=== PATIENT | female | born 1995 | race American Indian/Alaskan Native ===

== ENCOUNTER 2017-08-23 09:29 | Outpatient (CLI) | payer OTHER | END 2017-08-23 09:30 | disposition home or self-care (01) | LOC: LAB.N 09:29 | PROVIDERS: ATTEND Nurse Practitioner Obstetrics & Gynecology | DX: Z36.9 Encounter for antenatal screening, unspecified (principal) | CPT/HCPCS: 36415; 82950; 85018; 86850 ==

== ENCOUNTER 2017-08-24 07:46 | Outpatient (CLI) | payer OTHER | END 2017-08-24 07:47 | disposition home or self-care (01) | LOC: LAB 07:46 | PROVIDERS: ATTEND Nurse Practitioner Obstetrics & Gynecology | DX: R73.02 Impaired glucose tolerance (oral) (principal) | CPT/HCPCS: 36415; 82951 ==

== ENCOUNTER 2017-10-18 15:38 | Outpatient (CLI) | payer OTHER | END 2017-10-18 15:39 | disposition home or self-care (01) | LOC: LAB.R 15:38 | PROVIDERS: ATTEND Nurse Practitioner Obstetrics & Gynecology | DX: Z36.85 Encounter for antenatal screening for Streptococcus B (principal) | CPT/HCPCS: 87081 ==

== ENCOUNTER 2017-11-03 08:32 | Outpatient (CLI) | payer OTHER ==
--- NOTE | 2017-11-03 12:40 | Ultrasound Report ---
OB FOLLOW UP: 11/03/2017 CLINICAL INDICATION: Abnormal fasting glucose, check growth. TECHNIQUE: Real-time scanning was performed with sales representative canvas products static images obtained. LAST MENSTRUAL PERIOD: 02/12/2017 worksheet Clinical Age: 37 weeks 5 days US Age: 38 weeks 1 day EFW Hadlock: 3267 grams EFW% Hadlock: 61% Heart Rate: 146 bpm EDC: 11/21/2017 US EDC: 11/16/2017 BPD Hadlock: 38 weeks 2 days; Mean mm 94 HC Hadlock: 38 weeks 2 days; Mean mm 335 AC Hadlock: 37 weeks 3 days; Mean mm 336 FL Hadlock: 37 weeks 3 days; Mean mm 73 Presentation: cephalic Placental Location: posterior/L wrap Cervical Length: -- Amniotic Fluid: YOLANDA 15.3 cm; MVP 4.9 cm FINDINGS: There is a single viable intrauterine gestation, in cephalic presentation. heart rate is 146 BPM. The placenta is posterior, without evidence of previa. Amniotic fluid volume is normal, with an YOLANDA of 15.3. By size, the fetus measures 38 weeks 1 day (37 weeks 5 days by LMP). Estimated weight by Hadlock method is 3267 grams. No free fluid or adnexal lesion is appreciated. IMPRESSION: SINGLE VIABLE INTRAUTERINE GESTATION, WITH EXPECTED GROWTH FROM OUTSIDE ULTRASOUND. NORMAL YOLANDA. TD: 11/03/2017 10:37 MTDD
== END 2017-11-03 08:33 | disposition home or self-care (01) ==
LOC: DI 08:32
PROVIDERS: ATTEND Nurse Practitioner Obstetrics & Gynecology
DX: O99.810 Abnormal glucose complicating pregnancy (principal); R73.01 Impaired fasting glucose; Z3A.38 38 weeks gestation of pregnancy
CPT/HCPCS: 76816

== ENCOUNTER 2017-11-13 19:20 | Outpatient (CLI) | payer OTHER ==
--- NOTE | 2017-11-13 16:00 | HISTORY & PHYSICAL EXAMINATION ---
Admit History - Instructions [place]/Slash: -Left hand click circles element as positive or present. -Right hand click slashes element as negative or not present. - Visit Reason Visit Reason: Other (logistic induction of labor >39 weeks' gestation) - : 1 Parity: 0 Premature: 0 Ectopic: 0 : 0 Care: positive: [facility] (beginning @ 25 weeks' gestation), [facility] ( until 24 weeks' gestation) Risk/History: positive: None Complications This : positive: None, Other (elevated 1-hr gtt , normal 3-hr gtt; checked CBGs 4x/day, no elevations) Smoking Status: Never smoker - Mother's Labs Mother's RH: positive: Positive (reported per [facility] records) GBS: positive: Group B Step Negative Rubella Status: positive: Immune Meds/Allgy - Home Medications Home Medications: Ambulatory Orders Medication Instructions Recorded Confirmed Control Pills 03/09/15 03/09/15 Ibuprofen [Motrin] 800 mg PO Q8H PRN #30 tablet 03/09/15 diazePAM [Valium] 5 mg PO TID PRN #15 tablet 05/10/15 - Allergies Allergies/Adverse Reactions: Allergies Allergy/AdvReac Type Severity Reaction Status Date / Time No Known Drug Allergies Allergy Verified 05/10/15 19:13 Review of Systems - Constitutional Constitutional: reports: Fatigue. denies: Fever - Eyes Eyes: denies: Blurred vision, Spots in vision, Field loss, Vision loss, Dipolpia - Cardiovascular Cariovascular: denies: Irregular heart rate, Palpitations, Chest pain, Edema - Respiratory Respiratory: denies: Cough, Wheezing, SOB at rest - Gastrointestinal Gastrointestinal: denies: Abdominal pain, Constipation, Diarrhea, Change in bowel habits, Nausea, Vomiting - Genitourinary Genitourinary: reports: Frequency, Urgency. denies: Dysuria - Musculoskeletal Musculoskeletal: denies: Muscle pain, Back pain, Muscle aches - Integumentary Integumentary: denies: Rash, Pruritis, Lesions - Neurological Neurological: denies: General weakness, Focal weakness, Headache, Dizziness, Numbness - Psychiatric Psychiatric: denies: Depression, Anxiety - All Other Systems All Other Systems: reports: Reviewed and negative, Other (+FM, occasional uterine contractions, none painful, no LOF/VB) Physical - Abdominal Exam Contraction Frequency (min/apart): rare
[2017-11-13] MEDS ORDERED: ONDANSETRON 4 MG/2 ML VIAL IVP PRN (19:30)
[2017-11-13] MEDS ORDERED: fentaNYL 100 MCG/2 ML VIAL IVP PRN (19:30)
[2017-11-13] MEDS ORDERED: ACETAMINOPHEN 325 MG TABLET PO PRN (19:30)
[2017-11-13] MEDS ORDERED: SODIUM CHLORIDE FLUSH 0.9% 10 ML SYRINGE IVP SCH (19:30)
[2017-11-13] MEDS ORDERED: SODIUM CHLORIDE FLUSH 0.9% 10 ML SYRINGE IVP PRN (19:30)
[2017-11-13] MEDS ORDERED: DINOPROSTONE 10 MG SUPP VG ONE (19:30)
[2017-11-13] MEDS ORDERED: LACTATED RINGERS 1,000 ML IV SCH (19:30)
[2017-11-13 20:24] VITALS: BP 132/83
== END 2017-11-13 20:35 | disposition home or self-care (01) ==
LOC: WFO 19:20 → FBP 19:25 → UNDOADMOB 19:25 → FBP 20:10 → WFO 20:35
PROVIDERS: ATTEND Nurse Practitioner Obstetrics & Gynecology
DX: Z34.03 Encounter for supervision of normal first pregnancy, third trimester (principal)
CPT/HCPCS: 85025; 99212

== ENCOUNTER 2017-11-14 08:30 | Inpatient (IN) | payer OTHER ==
[2017-11-14] MEDS: SODIUM CHLORIDE FLUSH 0.9% 10 ML SYRINGE IVP SCH (09:04)
[2017-11-14] MEDS: miSOPROStol 100 MCG TABLET BC SCH ×4 (09:04→21:06)
[2017-11-14 09:05] LABS: BASOPHILS # (AUTO) 0.1 10^3/uL (0.0-0.1); BASOPHILS % (AUTO) 0.7 %; EOSINOPHILS # (AUTO) 0.2 10^3/uL (0.0-0.7); EOSINOPHILS % (AUTO) 1.8 %; HGB - HEMOGLOBIN 12.7 g/dL (12.0-16.0); LYMPHOCYTES # (AUTO) 2.5 10^3/uL (1.5-3.5); LYMPHOCYTES % (AUTO) 27.3 %; MEAN CORPUSCULAR HEMOGLOBIN 31.2 pg (27.0-31.0); MEAN CORPUSCULAR HGB CONC 34.6 g/dL (32.0-36.0); MEAN CORPUSCULAR VOLUME 90.1 fL (81.0-99.0); MONOCYTES # (AUTO) 0.6 10^3/uL (0.0-1.0); NEUTROPHILS # (AUTO) 5.7 10^3/uL (1.5-6.6); NEUTROPHILS % (AUTO) 63.2 %; PLT - PLATELET COUNT 252 10^3/uL (130-450); RED BLOOD COUNT 4.06 10^6/uL (4.20-5.40); RED CELL DISTRIBUTION WIDTH 13.8 % (12.0-15.0); WHITE BLOOD COUNT 9.1 x10^3/uL (4.8-10.8)
[2017-11-14] MEDS: LACTATED RINGERS 1,000 ML IV SCH (12:27)
--- NOTE | 2017-11-14 18:08 | PROVIDER PROGRESS NOTE ---
Subjective - Subjective Subjective: S: Spring is laying comfortably in bed. Feeling some menstrual-like cramping but overall comfortable. and mother supportive at bedside. O: FHR baseline 140s, moderate variability, + accels, no decels. Contractions palpate mild every 4-5 minutes A: 22yo @ 39.0wks gestation Logistic induction of labor P: Continue active management with cervical ripening in anticipation for pitocin with favorable cervix. Anticipate admission in less than 48 hours. Anticipate spontaneous vaginal delivery. Repeat SVE 11/15/2017 at 0800 or sooner PRN. Pt verbalized understanding and agrees to above plan. She and her deny further questions or concerns. Objective - Lab Results Fish Bones: 11/14/17 08:54 Other Labs: Lab Results x24hrs 11/14/17 11/14/17 11/14/17 Range/Units 08:54 08:54 08:46 WBC 9.1 (4.8-10.8) x10^3/uL RBC 4.06 L (4.20-5.40) 10^6/uL Hgb 12.7 (12.0-16.0) g/dL Hct 36.6 L (37.0-47.0) % MCV 90.1 (81.0-99.0) fL MCH 31.2 H (27.0-31.0) pg MCHC 34.6 (32.0-36.0) g/dL RDW 13.8 (12.0-15.0) % Plt Count 252 (130-450) 10^3/uL MPV 8.0 (7.9-10.8) fL Neut # 5.7 (1.5-6.6) 10^3/uL Lymph # 2.5 (1.5-3.5) 10^3/uL Gulf # 0.6 (0.0-1.0) 10^3/uL Eos # 0.2 (0.0-0.7) 10^3/uL Baso # 0.1 (0.0-0.1) 10^3/uL Absolute Nucleated RBC 0.01 x10^3/uL Nucleated RBC % 0.1 /100WBC Blood Type O POSITIVE Blood Type Recheck O POSITIVE Antibody Screen NEGATIVE
[2017-11-14] MEDS ORDERED: ZOLPIDEM 5 MG TABLET PO ONE (21:30)
[2017-11-15] MEDS: miSOPROStol 100 MCG TABLET BC SCH ×6 (01:02→20:00)
[2017-11-15] MEDS: SODIUM CHLORIDE FLUSH 0.9% 10 ML SYRINGE IVP SCH ×4 (05:03→18:51)
[2017-11-15] MEDS: LACTATED RINGERS 1,000 ML IV SCH ×2 (08:13→17:46)
[2017-11-15] MEDS ORDERED: DINOPROSTONE 10 MG SUPP VG ONE (08:59)
--- NOTE | 2017-11-15 19:53 | PROVIDER PROGRESS NOTE ---
Subjective - Subjective Subjective: S: Pt feeling discouraged and anxious to meet her baby. Feeling vaginal irritation but declines to have normal saline and lidocaine used to flush out vagina. Feeling some contractions in her back. +FM. O: FHR baseline 130, moderate variability, + accels, no decels. SVE deferred. Contractions irregular/inconsistent. Cervadil easily removed and was at the vaginal introitus. A: 22yo @ 39.2 weeks gestation Treated as A1GDM secondary to impaired 1 hour GTT and borderline 3 hour GTT Non-medical/logistic cervical ripening induction of labor P: 25mcg misoprostol x1 now, followed by 50mcg misoprostol q 4 hours. Reviewed with patient and who are in agreement with the this plan. They verbalized understanding and deny further questions or concerns. Reevaluate in 12 hours or sooner PRN. Objective - Lab Results Benedicto Bones: 11/14/17 08:54
[2017-11-15] MEDS: ZOLPIDEM 5 MG TABLET PO PRN (21:04)
[2017-11-16] MEDS: miSOPROStol 100 MCG TABLET BC SCH ×6 (03:59→20:47)
[2017-11-16] MEDS: SODIUM CHLORIDE FLUSH 0.9% 10 ML SYRINGE IVP SCH ×2 (09:06→16:03)
[2017-11-16] MEDS: LACTATED RINGERS 1,000 ML IV SCH ×2 (09:13→13:21)
--- NOTE | 2017-11-16 11:27 | PROVIDER PROGRESS NOTE ---
Subjective - Subjective Subjective: S: Patient standing at the bedside and swaying. She is feeling some cramping with contractions but coping easily. +FM. Slept well throughout the night as did her . a mother supportive at the bedside. O: FHR baseline 150s, moderate variability, + accels, no decels. Contractions irregular/inconsistent. SVE deferred A: 22yo @ 39.3 wks gestation Impaired 1 hour GTT and borderline 3 hour GTT Treated as A1GDM with stable blood glucose readings throughout Non-medication/logistic induction of labor with cervical ripening P: Continue 50mcg misoprostol q 4 hours Patient up to shower before next dose of misoprostol due Pt verbalized understanding and agrees to above plan. Denies further questions or concerns today. Objective - Lab Results Fish Bones: 11/14/17 08:54
--- NOTE | 2017-11-16 15:05 | PROVIDER PROGRESS NOTE ---
Subjective - Subjective Subjective: S: Spring is feeling some mild menstrual-like cramping with contractions. Coping well and moral is good. Anxious to meet her baby. supportive at bedside. O: FHR baseline 140, + accels, no decels, moderate variability. Contractions palpate mild every 6-10 minutes. SVE 2/50/-3, posterior, soft, vertex, BOW intact A: 22yo @ 39.3wks gestation Impaired 1 hour GTT, 3 hour GTT borderline; treated as A1GDM with well controlled blood glucose GBS negative Non-medical/logistic induction of labor Cytotec 50mcg BC q 4 hours for cervical ripening Category I heart rate tracing P: Continue active management. Continuous monitoring. Anticipate admission to labor and delivery in less than 48 hours. Anticipate spontaneous vaginal delivery. Dr. Crain updated on patient's status and agrees to continued plan of care. Objective - Lab Results Fish Bones: 11/14/17 08:54
[2017-11-16] MEDS: ZOLPIDEM 5 MG TABLET PO PRN (20:54)
[2017-11-17] MEDS: miSOPROStol 100 MCG TABLET BC SCH ×2 (00:55→05:03)
[2017-11-17] MEDS: SODIUM CHLORIDE FLUSH 0.9% 10 ML SYRINGE IVP SCH ×2 (06:19→10:48)
--- NOTE | 2017-11-17 09:58 | PROVIDER PROGRESS NOTE ---
Labor Progress Note - Uterine Monitoring Uterine Monitoring Mode: positive: External toco Contraction Frequency (min/apart): 4-5 Contraction Intensity: positive: Mild to moderate Uterine Resting Tone: positive: Soft - Monitoring Monitor Mode: positive: External ultrasound Heart Rate Baseline: 140 Heart Rate Variability: positive: Moderate (6-25 bmp) Accelerations: positive: Present, 15x15 Decelerations: positive: None Strip Review: positive: Category I - Vaginal Exam Dilation (in cm): 4 Effacement (%): 75 Station: -2 Cervical Position: Midposition (BBOW, AROM for copious CAF) - Labor Progress Note Labor Progress Note/Additional Text: S: Ciara is comfortable but somewhat frustrated by her protracted process of induction. She does not desire analgesia/anesthesia. Her partner & her mother are at the bedside & are supportive. O: AAOx3, NAD WA female VSS EFM: BL 140bpm, +accels, no decels, mod variability TOCO: UCs q 4-5 min x60-80 seconds, palpably moderate SVE: 4/70/-2, BBOW, AROM for copious CAF A: 22 y/o @ 39w5d, logistic IOL s/p effective prostaglandin cervical ripening FHTs cat I Adequate pain control w/o analgesia/anesthesia GBS negative P: 1. Extensive review of all options for management--pt elected AROM w/ Pitocin infusion, reviewed & PARQ held 2. Begin Pitocin @ 2mU/min & titrate per protocol to adequate labor by tocometry 3. Reassess cervical status x4 hours, earlier PRN 4. Reviewed optimal maternal positioning to encourage rotation & descent 5. Reviewed labor physiology, anticipatory guidance 6. Reviewed pain management options 7. Reviewed plan of care w/ pt, partner, pt's mother & RN @ bedside; all in agreement, without concerns. Dr. Crain, DO, updated re: pt clinical status.
[2017-11-17] MEDS ORDERED: fentaNYL 100 MCG/2 ML VIAL IVP PRN (10:34)
--- NOTE | 2017-11-17 10:43 | HISTORY & PHYSICAL EXAMINATION ---
Admit History - Instructions [place]/Slash: -Left hand click circles element as positive or present. -Right hand click slashes element as negative or not present. - Visit Reason Visit Reason: Other (induction of labor, logistic; s/p preinduction cervical ripening w/ buccal prostaglandin) - : 1 Parity: 0 Premature: 0 Ectopic: 0 : 0 Care: positive: [facility], [facility] Complications This : positive: None Smoking Status: Never smoker - Mother's Labs Mother's RH: positive: Positive GBS: positive: Group B Step Negative Rubella Status: positive: Immune Meds/Allgy - Home Medications Home Medications: Ambulatory Orders Medication Instructions Recorded Confirmed Pnv95/Ferrous Fumarate/FA 1 tab PO DAILY 11/16/17 11/16/17 [ Tablet] - Allergies Allergies/Adverse Reactions: Allergies Allergy/AdvReac Type Severity Reaction Status Date / Time No Known Drug Allergies Allergy Verified 05/10/15 19:13 Review of Systems - Constitutional Constitutional: denies: Fatigue, Fever - Cardiovascular Cariovascular: reports: Edema (trace b/l pedal). denies: Irregular heart rate, Palpitations, Chest pain - Respiratory Respiratory: denies: Cough, Wheezing, SOB at rest, SOB with exertion - Gastrointestinal Gastrointestinal: denies: Abdominal pain, Constipation, Diarrhea, Nausea, Vomiting - Genitourinary Genitourinary: reports: Frequency. denies: Dysuria, Urgency - Musculoskeletal Musculoskeletal: denies: Muscle pain, Back pain - Integumentary Integumentary: denies: Rash, Pruritis, Lesions - Neurological Neurological: denies: General weakness, Focal weakness, Headache, Dizziness, Numbness - Psychiatric Psychiatric: denies: Depression, Anxiety - All Other Systems All Other Systems: reports: Reviewed and negative Physical - Abdominal Exam Vital Signs: Temp Pulse Resp BP Pulse Ox 36.9 C 88 16 129/80 98 11/14/17 09:00 11/14/17 09:00 11/14/17 09:00 11/14/17 09:00 11/14/17 09:00 Contraction Frequency (min/apart): 4-5 Contraction Intensity: positive: Moderate Uterine Resting Tone: positive: Soft - Monitoring Heart Rate Baseline: 140 Strip Review: positive: Category I - Presentation Presentation: positive: Vertex - Vaginal Exam Membranes: positive: Membranes ruptured Dilation (in cm): 4 Effacement (%): 75 Station: positive: -2 Cervical Position: positive: Midposition - Speculum Exam Speculum Exam Performed: positive: No Findings: positive: Gross leak (AROM for copious CAF) - Other Notes Labor Progress Note/Additional Text: Ciara Duggan is a 22 y/o @ 39w5d by early US dating. She presented for preinduction cervical ripening & received a combination of intravaginal dinoprostone insert followed by buccal misoprostol administration over a period of 3 days, which ultimately resulted in favorable cervical status. She is GBS negative & elected AROM w/ Pitocin infusion for her IOL. Her care has been complicated only by elevated 1hr gtt & normal 3hr gtt; she assessed CBGs 4x /d w/ all WNL. PMH: unremarkable PSurgH: None OBhx: primiparous GYNhx: no sti, no abnl paps soc hx: no etoh/drugs/tobacco; no dv, partnered; active duty , good social support meds: vitamins allergies: NKDA PE: GEN: AAOx3, NAD WA gravid female HEENT: grossly normocephalic, atraumatic CARDIAC: rrr nl s1s2, no murmur RESP: lungs b/l cta t/o GI: gravid abd, NT, ND, palpable movement, fetus longitudinal, presentation cephalic, EFW 8.5-9# : No lesions, CAF leaking OB: SVE: 4/70/-1, soft midposition EFM: BL 140bpm, +accels, no decels, mod samantha TOCO: UCs q4-5min x60-80 sec MS: FROM, no deformity, minimal pedal edema NEURO: no focal deficit SKIN: CDI, warm, well-perfused, no lesion PSYCH: Normal mood & affect Plan for Labor - Plan For Labor I expect patient to be DC'd or transferred within 96 hours.: Yes Plan for Labor: 1. Begin Pitocin infusion & titrate per protocol to adequate contraction pattern by tocometry 2. Reassess cervical status x4 hours, earlier PRN 3. Analgesia/anesthesia PRN per pt request
[2017-11-17] MEDS: LACTATED RINGERS 1,000 ML IV SCH ×2 (10:48→15:33)
[2017-11-17] MEDS ORDERED: OXYTOCIN/SODIUM CHLORIDE 500 ML IV SCH (11:00)
[2017-11-17] MEDS ORDERED: SODIUM CHLORIDE 0.9% IV SCH (12:00)
[2017-11-17] MEDS ORDERED: OXYTOCIN IV SCH (12:00)
--- NOTE | 2017-11-17 13:35 | PROVIDER PROGRESS NOTE ---
Labor Progress Note - Uterine Monitoring Uterine Monitoring Mode: positive: External toco Contraction Frequency (min/apart): 5 Contraction Intensity: positive: Mild to moderate Uterine Resting Tone: positive: Soft - Monitoring Monitor Mode: positive: External ultrasound Heart Rate Baseline: 145 Heart Rate Variability: positive: Moderate (6-25 bmp) Accelerations: positive: Present, 15x15 Decelerations: positive: None Strip Review: positive: Category I - Vaginal Exam Dilation (in cm): deferred - Labor Progress Note Labor Progress Note/Additional Text: S: Ciara is ambulating in the hallways with Aaron. She reports that her contractions have become more uncomfortable & that she is having trouble sitting still from the discomfort. She is undecided re: ultimate desires for analgesia/anesthesia, but she declines both @ this time. O: AAOx3, NAD WA female VSS EFM BL 145bpm, +accels, no decels, mod samantha TOCO: uterine contractions q5 min on 3mU/min Pitocin, titrated over a period of 1.25 hours SVE deferred secondary to no indication A: 22 y/o @ 39w5d, logistic induction of labor s/p effective prostaglandin cervical ripening s/p AROM for copious CAF @ 0900, for a total ruptured duration of 4.5 hours, afebrile GBS negative Some contraction activity w/ Pitocin infusion x1.25 hours FHTs cat I Adequate pain control w/o analgesia/anesthesia P: 1. Continue to titrate Pitocin infusion per protocol to achieve adequate contraction pattern per tocometry 2. Reassess cervical status x2 hours s/p establishment of adequate contraction pattern--if unable to assess utilizing tocometry, will insert IUPC & titrate accordingly, reviewed titration & tocometry w/ RN 3. Reviewed physiology of labor & optimal maternal positioning to facilitate descent 4. Analgesia/anesthesia PRN per pt request 5. Reviewed plan of care w/ pt, partner & RN; all in agreement, without concerns.
[2017-11-17] MEDS ORDERED: fent/BUPIV 2 MCG/0.125% 250 ML EP ONE (16:04)
[2017-11-17] MEDS ORDERED: BUPIVACAINE 0.25% PF 30 ML VIAL SUBQ ONE (16:23)
[2017-11-17] MEDS ORDERED: ePHEDrine 50 MG/ML VIAL IVP PRN (16:29)
[2017-11-17] MEDS ORDERED: ONDANSETRON 4 MG/2 ML VIAL IVP PRN (16:29)
[2017-11-17] MEDS ORDERED: NALBUPHINE 20 MG/ML AMP IVP PRN (16:29)
[2017-11-17] MEDS ORDERED: LACTATED RINGERS 500 ML IV ONE ×2 (16:29→16:31)
[2017-11-17] MEDS ORDERED: NALOXONE 0.4 MG/ML VIAL IVP PRN (16:29)
[2017-11-17] MEDS ORDERED: fent/BUPIV 2 MCG/0.125% 250 ML EP PRN (16:31)
--- NOTE | 2017-11-17 18:04 | PROVIDER PROGRESS NOTE ---
Labor Progress Note - Uterine Monitoring Uterine Monitoring Mode: positive: External toco, IUPC (placed w/o incident to better assess contraction activity) Contraction Frequency (min/apart): 4-5 Contraction Intensity: positive: Moderate Uterine Resting Tone: positive: Soft - Monitoring Monitor Mode: positive: External ultrasound Heart Rate Baseline: 145 Heart Rate Variability: positive: Moderate (6-25 bmp) Accelerations: positive: Present, 15x15 Decelerations: positive: None Strip Review: positive: Category I - Vaginal Exam Dilation (in cm): 5-6 Effacement (%): 100 Station: -1 Cervical Position: Midposition - Labor Progress Note Labor Progress Note/Additional Text: S: Ciara is comfortable w/ her epidural in place. Aaron & her mother are present @ the bedside & are involved & supportive. She feels occasional pressure but no discomfort O: AAOx3, NAD WA female VSS, afebrile EFM: BL 145bpm, +accels, no decels, mod samantha TOCO: UCs q4-5 min x60-80 sec, palp mod SVE: 5-6/100/-1, ongoing leakage of CAF A: 22 y/o @ 39w5d, logistic IOL s/p effective prostaglandin cervical ripening AROM for CAF @ 0900, for a total ruptured duration of 9 hours, afebrile Slow cervical change w/ Pitocin infusion titrated very slowly over a period of 5.75 hours to a maximum infusion rate of 4mU/min FHTs cat I GBS negative Adequate pain control w/ epidural anesthesia P: 1. IUPC placed to accurately assess uterine activity & adequacy of labor & allow for appropriate titration of Pitocin infusion to achieve MVU of 200 2. Titrate Pitocin infusion by IUPC to adequate labor pattern per MVU 3. Place wang catheter to ensure empty bladder until active pushing in 2nd stage in order to facilitate descent 4. Reviewed optimal maternal positioning to facilitate descent 5. Reassess cervical status x4 hours unless adequate labor not achieved, then x2 hours s/p establishment of adequate labor by MVU, earlier PRN--limit SVE to those clinically indicated to direct plan of care 6. Anticipate initial passive descent in 2nd stage labor 7. Reviewed plan of care w/ pt, partner, pt's mother, RN @ bedside; all in agreement, without concerns; Dr. Paras DO, updated as to pt clinical status
[2017-11-17] MEDS: ACETAMINOPHEN 500 MG TABLET PO PRN (21:13)
--- NOTE | 2017-11-17 22:48 | PROVIDER PROGRESS NOTE ---
Labor Progress Note - Uterine Monitoring Uterine Monitoring Mode: positive: IUPC Contraction Frequency (min/apart): 2-4 Contraction Intensity: positive: Strong (MVU >180) Uterine Resting Tone: positive: Soft - Monitoring Monitor Mode: positive: External ultrasound Heart Rate Baseline: 165 Heart Rate Variability: positive: Moderate (6-25 bmp) Accelerations: positive: Present, 15x15 Decelerations: positive: None Strip Review: positive: Category II - Vaginal Exam Dilation (in cm): 10 Effacement (%): 100 Station: 2 Cervical Position: Anterior - Labor Progress Note Labor Progress Note/Additional Text: S: Spring is uncomfortable & has not been able to get comfortable w/ use of epidural boluses, reports constant vaginal discomfort O: AAOx3, uncomfortable female VS: T 38.0, HR 130, BP 138/85, RR 22 EFM: BL 165bpm, + accels, no decels, mod samantha IUPC: BL 25mmHg, peak 70mmHg, uterine contractions occuring q 2-3 minutes, MVU 160-180 SVE: 10/100/+2 A: 22 y/o @ 39w5d, logistic IOL s/p effective prostaglandin cervical ripening febrile w/ maternal & tachycardia despite antipyretic & fluid boluses, consistent w/ Triple I GBS negative AROM for CAF @ 0900, for a total ruptured duration of 13.75 hours FHTs cat II Inadequate pain control secondary to low station P: 1. Remove wang catheter 2. Begin pushing 3. Presumptive tx of triple I w/ ampicillin 2g IVPB q 6 hrs x24 hours, gentamicin 5mg/kg IVPB once 4. Plan placental disposition to pathology 5. Plan umbilical cord gases & RT present @ delivery 6. Anticipate
[2017-11-17] MEDS: AMPICILLIN 2 GM in SODIUM CHLORIDE 0.9% MINIBAG 100 ML IV SCH (22:56)
[2017-11-17] MEDS ORDERED: GENTAMICIN 120 MG in SODIUM CHLORIDE 0.9% 100ML 100 ML IV SCH (23:00)
[2017-11-17] MEDS ORDERED: GENTAMICIN PER PHARMACY IV PRN (23:00)
[2017-11-17] MEDS ORDERED: SODIUM CHLORIDE 0.9% IV PRN (23:00)
[2017-11-17] MEDS ORDERED: LIDOCAINE 1% 50 ML MDV ONE (23:47)
[2017-11-17] MEDS ORDERED: MAGNESIUM HYDROXIDE 2,400 MG/30 ML UDC PO PRN (23:57)
[2017-11-17] MEDS ORDERED: OXYTOCIN/SODIUM CHLORIDE 250 ML IV ONE (23:57)
[2017-11-17] MEDS ORDERED: METHYLERGONOVINE 0.2 MG/ML AMP ONE (23:57)
[2017-11-17] MEDS ORDERED: HYDROCORTISONE/PRAMOXINE 10 GM PR PRN (23:57)
[2017-11-17] MEDS ORDERED: HYDROCORTISONE 1% CREAM 28 GM TUBE PR PRN (23:57)
[2017-11-17] MEDS ORDERED: WITCH HAZEL/GLYCERIN 1 EACH MED..PAD TOP PRN (23:57)
[2017-11-17] MEDS ORDERED: miSOPROStol 200 MCG TABLET SL SCH (23:58)
--- NOTE | 2017-11-18 00:13 | DELIVERY NOTE ---
Delivery Note - Labor Labor: positive: Induced by oxytocin (s/p prostaglandin preinduction cervical ripening) - Delivery Method Delivery Method: positive: Spontaneous vaginal delivery - Presentation Presentation: positive: Vertex, JOHN - right occiput anterior - Nuchal Cord Nuchal Cord: positive: None - Episiotomy Type Episiotomy Type: positive: None - Laceration Laceration: positive: 1st degree (repaired under local anesthesia w/ 2-0 vicryl , hemostatic.) - Suture Suture Type: positive: Vicryl Suture Size: positive: 2-0 - Delivery Outcome Delivery Outcome: positive: Livebirth - [place] : positive: Placed in direct skin contact with mother, Stimulated, [place] used Dodson sex: positive: Female - Cord Cord: positive: 3 vessels - Placenta Placenta: positive: Intact, Spontaneous - Estimated Blood Loss Estimated Blood Loss (in cc): 850 - Delivery Comments (Free Text/Narrative) Delivery Comments (Free Text/Narrative): Ciara Duggan is a 22 y/o [id number] who presented w/ unfavorable cervical status for logistic induction of labor secondary to partner's impending deployment. She received 1 insert of vaginal dinoprostone & misoprostol buccally over the course of 48 hours. She achieved favorable cervical status the morning of 11/17/2017 & thereafter underwent AROM for CAF & received Pitocin infusion to a maximum infusion rate of 8mU/min, titrated over a period of 11 hours. She received epidural anesthesia per her request @ 5-6cm dilatation & underwent IUPC placement to appropriately direct titration of Pitocin to achieve & maintain an adequate labor pattern. FHTs were monitored electronically t/o the first stage of labor & were cat I until 22:00, at which time Ciara developed a fever & her fetus became persistently tachycardic w/ baseline FHTs 165bpm. She received antipyretic therapy w/o response & was herself tachycardic & persistently febrile. Presumed Triple I was diagnosed & ampicillin/gentamicin infusions initiated accordingly. She was found to be complete @ 2236, for a total first stage duration of 5hrs, 36 minutes. Her expulsive efforts were poor & her ability to coordinate her efforts was also decidedly poor; therefore, epidural infusion was discontinued & expulsive efforts improved over time. Ciara pushed w/ direction to viable female in JOHN position over a 1st degree perineal laceration @ 2335, for a total 2nd stage duration of 59 minutes. Total ruptured duration 14hrs, 35 minutes. vigorous w/ spontaneous, lusty cry. Placed to maternal abd for drying/ stim. Apgars 7/9. Delayed cord clamping until cessation of pulsation, then cord clamped x2 by CNM, cut by FOB. 3VC noted, cord blood obtained; cord segment obtained for gases secondary to persistent tachycardia t/o the 2nd stage; results pending. Active management of the third stage of labor w/ Pitocin in IV fluids; placenta delivered spontaneously, Fabián, @ 2339, for a total 3rd stage duration of 4 minutes. Fundus firm, but lower uterine segment w / significant atony, filling rapidly w/ clot; brisk vaginal bleeding. Bimanual compression performed & MEÑO evacuated x2 for large amount of clot. Methergine 0.2mg IM x1 administered & misoprostol 800mcg bc administered while continuing bimanual compression. MEÑO firmed, FF U-1, bleeding controlled by 2353. Vagina & perineum inspected & 1st degree perineal laceration noted; repaired s/p infiltration w/ 10mL 1% lidocaine, using 2-0 vicryl x2 stitches. Hemostatic & well-approximated. Total EBL 850mL. Maternal VSS. Mother & stable. Weight pending. Will continue abx therapy x24 hours & administer po methergine series 0.2mg TID x3d, will obtain CBC in am. Peds aware of maternal fever/ tachycardia prior to delivery. Anticipate pt will require minimum 48- hour hospital stay.
[2017-11-18] MEDS ORDERED: SODIUM CHLORIDE 0.9% MINIBAG 100 ML IV ONE (00:30)
[2017-11-18] MEDS ORDERED: OXYTOCIN 10 UNIT/ML VIAL ONE (00:32)
[2017-11-18] MEDS: ACETAMINOPHEN 500 MG TABLET PO PRN ×3 (02:59→16:19)
[2017-11-18 05:55] LABS: BASOPHILS # (AUTO) 0.1 10^3/uL (0.0-0.1); BASOPHILS % (AUTO) 0.5 %; EOSINOPHILS % (AUTO) 0.1 %; HGB - HEMOGLOBIN 12.2 g/dL (12.0-16.0); LYMPHOCYTES % (AUTO) 9.1 %; MEAN CORPUSCULAR VOLUME 90.9 fL (81.0-99.0); MEAN PLATELET VOLUME 8.2 fL (7.9-10.8); MONOCYTES # (AUTO) 1.5 10^3/uL (0.0-1.0); MONOCYTES % (AUTO) 6.7 %; NEUTROPHILS # (AUTO) 18.2 10^3/uL (1.5-6.6); NEUTROPHILS % (AUTO) 83.6 %; PLT - PLATELET COUNT 239 10^3/uL (130-450); RED BLOOD COUNT 4.05 10^6/uL (4.20-5.40); RED CELL DISTRIBUTION WIDTH 13.4 % (12.0-15.0); WHITE BLOOD COUNT 21.7 x10^3/uL (4.8-10.8)
[2017-11-18] MEDS: AMPICILLIN 2 GM in SODIUM CHLORIDE 0.9% MINIBAG 100 ML IV SCH ×4 (06:13→18:28)
[2017-11-18] MEDS: METHYLERGONOVINE 0.2 MG/ML AMP PO SCH ×3 (06:14→21:33)
[2017-11-18 06:43] LABS: PLATELET ESTIMATE, MANUAL NORMAL (130-450,000) (NORMAL); PLATELET MORPHOLOGY NORMAL APPEARANCE (NORMAL); RBC MORPHOLOGY (MULTIPLE) NORMAL APPEARANCE (NORMAL)
[2017-11-18] MEDS ORDERED: GENTAMICIN 340 MG in SODIUM CHLORIDE 0.9% 100ML 100 ML IV SCH (09:00)
[2017-11-18] MEDS: CELECOXIB 100 MG CAPSULE PO SCH ×2 (09:30→21:33)
[2017-11-18] MEDS: DOCUSATE SODIUM 100 MG CAPSULE PO SCH ×2 (09:31→21:33)
[2017-11-18] MEDS: SODIUM CHLORIDE FLUSH 0.9% 10 ML SYRINGE IVP SCH ×2 (10:04→13:49)
[2017-11-18] MEDS: SODIUM CHLORIDE FLUSH 0.9% 10 ML SYRINGE IVP PRN ×4 (10:46→18:58)
[2017-11-18] MEDS: CHERRY SYRUP 10 ML UDC PO SCH ×2 (14:38→21:33)
--- NOTE | 2017-11-18 17:06 | PROVIDER PROGRESS NOTE ---
Subjective - Subjective Subjective: S: Bonding well with baby. with some difficulty and reports baby easily falls asleep at the breast and is difficult to wake. Reports she is sore abdominally in addition to overall body discomfort and particularly in her lower back. Mom and supportive at the bedside. O: Heart RRR w/o M/G/R. Lungs CTAB. Abdomen soft and moderately tender with fundus firm at U. Bilateral LE's 2+ edema from feet to mid-calf. Urinary catheter draining well with light yellow urine. A: 22yo -->P1 s/p TSVD of viable female Chorioamnionitis A1GDM S/p PP hemorrhage 850mL P: Continue treatment of chorioamnionitis and monitor patient for symptoms of infection. Continue to work closely with senior staff accountant on lacatation. Encouraged her to walk around the unit. Catherine catheter removed and patient urinating without difficulty. Continue routine PP care and medications. Objective - Vital Signs/Intake & Output Vital Signs: Vital Signs x48h Temp Pulse Resp BP Pulse Ox 11/18/17 16:00 36.7 C 81 16 126/79 100 11/18/17 13:00 37.0 C 77 16 127/76 99 Intake & Output: Intake & Output 11/15/17 11/16/17 11/17/17 11/18/17 23:59 23:59 23:59 23:59 Intake Total 1575 661.5 Output Total 4590 Balance 1575 -3928.5 - Lab Results Fish Bones: 11/18/17 05:28 Other Labs: Lab Results x24hrs 11/18/17 Range/Units 05:28 WBC 21.7 H (4.8-10.8) x10^3/uL RBC 4.05 L (4.20-5.40) 10^6/uL Hgb 12.2 (12.0-16.0) g/dL Hct 36.8 L (37.0-47.0) % MCV 90.9 (81.0-99.0) fL MCH 30.0 (27.0-31.0) pg MCHC 33.0 (32.0-36.0) g/dL RDW 13.4 (12.0-15.0) % Plt Count 239 (130-450) 10^3/uL MPV 8.2 (7.9-10.8) fL Neut # 18.2 H (1.5-6.6) 10^3/uL Lymph # 2.0 (1.5-3.5) 10^3/uL [place] # 1.5 H (0.0-1.0) 10^3/uL Eos # 0.0 (0.0-0.7) 10^3/uL Baso # 0.1 (0.0-0.1) 10^3/uL Absolute Nucleated RBC 0.01 x10^3/uL Nucleated RBC % 0.0 /100WBC Manual Slide Review Indicated Platelet Estimate NORMAL (130-450,000) (NORMAL) Platelet Morphology NORMAL APPEARANCE (NORMAL) RBC Morph Micro Appear NORMAL APPEARANCE (NORMAL)
[2017-11-18 20:21] LABS: GENTAMICIN,RANDOM 1.2 ug/mL
[2017-11-19] MEDS: METHYLERGONOVINE 0.2 MG/ML AMP PO SCH (05:51)
[2017-11-19] MEDS: CHERRY SYRUP 10 ML UDC PO SCH (06:02)
[2017-11-19 06:35] LABS: BASOPHILS # (AUTO) 0.1 10^3/uL (0.0-0.1); BASOPHILS % (AUTO) 0.5 %; EOSINOPHILS # (AUTO) 0.2 10^3/uL (0.0-0.7); EOSINOPHILS % (AUTO) 1.2 %; HGB - HEMOGLOBIN 12.1 g/dL (12.0-16.0); LYMPHOCYTES # (AUTO) 2.4 10^3/uL (1.5-3.5); LYMPHOCYTES % (AUTO) 14.8 %; MEAN CORPUSCULAR HEMOGLOBIN 30.1 pg (27.0-31.0); MEAN CORPUSCULAR HGB CONC 32.8 g/dL (32.0-36.0); MEAN CORPUSCULAR VOLUME 91.7 fL (81.0-99.0); MEAN PLATELET VOLUME 8.3 fL (7.9-10.8); MONOCYTES # (AUTO) 1.2 10^3/uL (0.0-1.0); MONOCYTES % (AUTO) 7.7 %; NEUTROPHILS # (AUTO) 12.3 10^3/uL (1.5-6.6); NEUTROPHILS % (AUTO) 75.8 %; PLT - PLATELET COUNT 232 10^3/uL (130-450); RED BLOOD COUNT 4.04 10^6/uL (4.20-5.40); RED CELL DISTRIBUTION WIDTH 13.7 % (12.0-15.0); WHITE BLOOD COUNT 16.2 x10^3/uL (4.8-10.8)
[2017-11-19] MEDS: CELECOXIB 100 MG CAPSULE PO SCH ×2 (09:44→21:07)
[2017-11-19] MEDS: DOCUSATE SODIUM 100 MG CAPSULE PO SCH ×2 (09:44→21:07)
--- NOTE | 2017-11-19 10:20 | PROVIDER PROGRESS NOTE ---
Subjective - Subjective Subjective: S: Sitting up on couch and baby in football hold position. Bonding well with baby. significantly improved. Baby cluster fed throughout the night. Reports a sore area that cracked on the underside of her left nipple. Pain well controlled with ibuprofen and tylenol. Bleeding decreased and is light. Feeling some soreness in her lower back at epidural site. Overall feeling well and improved. They are anxious to leave early tomorrow morning. and mom supportive at the bedside. O: Hgb 12.7 -->12.2-->12.1; WBC 91.-->21.7-->16.2; BP 129/86; Afebrile; Heart RRR w/o M/G/R. Lungs CTAB. Abdomen soft and nontender with fundus firm at U-1. Bilateral LE's trace edema. Perineum intact and repair with mild edema. A: 22yo -->P1 PPD#2 s/p TSVD of viable female infant named Lorena. S/p hemorrhage of ~850mL - s/p methergine PO x 24 hours, Hg & Hct stable S/p chorioamnionitis - afebrile, abdominal tenderness improved, s/p ampicillin and gentamycin P: Continue routine pp care and meds. Plan discharge home tomorrow morning. Objective - Vital Signs/Intake & Output Vital Signs: Vital Signs x48h Temp Pulse Resp BP Pulse Ox 11/19/17 03:40 37 C 83 16 129/86 H 100 Intake & Output: Intake & Output 11/16/17 11/17/17 11/18/17 11/19/17 23:59 23:59 23:59 23:59 Intake Total 1575 2194.833 480 Output Total 4790 Balance 1575 -2595.167 480 - Lab Results Fish Bones: 11/19/17 06:14 Other Labs: Lab Results x24hrs 11/19/17 11/18/17 Range/Units 06:14 19:23 WBC 16.2 H (4.8-10.8) x10^3/uL RBC 4.04 L (4.20-5.40) 10^6/uL Hgb 12.1 (12.0-16.0) g/dL Hct 37.0 (37.0-47.0) % MCV 91.7 (81.0-99.0) fL MCH 30.1 (27.0-31.0) pg MCHC 32.8 (32.0-36.0) g/dL RDW 13.7 (12.0-15.0) % Plt Count 232 (130-450) 10^3/uL MPV 8.3 (7.9-10.8) fL Neut # 12.3 H (1.5-6.6) 10^3/uL Lymph # 2.4 (1.5-3.5) 10^3/uL [place] # 1.2 H (0.0-1.0) 10^3/uL Eos # 0.2 (0.0-0.7) 10^3/uL Baso # 0.1 (0.0-0.1) 10^3/uL Absolute Nucleated RBC 0.02 x10^3/uL Nucleated RBC % 0.1 /100WBC Last Dose Date 11/18/17 Last Dose Time 1130 Random Gentamicin 1.2 ug/mL
[2017-11-19] MEDS: ACETAMINOPHEN 500 MG TABLET PO PRN (18:48)
[2017-11-20] MEDS: ACETAMINOPHEN 500 MG TABLET PO PRN (00:28)
--- NOTE | 2017-11-20 07:03 | Discharge Plan ---
Discharge Plan Disposition: 01 Home, Self Care Condition: Good Diet: Regular Activity Restrictions: No Restrictions Shower Restrictions: No Driving Restrictions: No Weight Bearing: Full Weight No Smoking: If you smoke, Please STOP! Call for help.
--- NOTE | 2017-11-20 07:13 | PROVIDER PROGRESS NOTE ---
Subjective - Subjective Subjective: S: Bonding well with baby. without difficulty. Baby cluster fed throughout the night so they are tired but overall feeling well. Nipples comfortable and no cracking noted over left nipple as was her concern yesterday. Pain well controlled with ibuprofen and tylenol. Bleeding decreased and is light. supportive and currently rocking baby at the bedside. O: Normotensive, afebrile. Heart RRR w/o M/G/R, lungs CTAB. Abdomen soft and nontender. Fundus firm at U-2. Light lochia rubra. Bilateral LE's 2+ edema. A: 22yo -->P1 PPD#3 s/p TSVD of viable female infant named Lornea. S/p chorioamnionitis with treatment with ampicillin and gentamycin; Afebrile, WBC decreased S/p hemorrhage with stable Hgb & Hct and no excessive bleeding P: Reviewed self care and warning signs. Extensive review. Rx handwritten and provided to patient for Ibuprofen 600mg PO q 6 hours PRN pain #60 with 1 refill; Fluconazole 200mg PO q day x 14 days #14 with 0 refills; All-purpose nipple ointment 15 gram tube to apply sparingly to affected area PRN. No need to wipe off between feedings, 1 refill. Pt plans to take to [facility] in [place]. They are unsure of their plan for contraception at this time but relatively sure she desires a LARC - considering Mirena IUD. She plans to f/u with myself at [facility] in 1 week for a consultation and then again in 3 weeks for a routine visit. She and her both verbalized understanding and agree to the above plan. They deny further questions or concerns today. Return in 1 week or sooner PRN. Objective - Vital Signs/Intake & Output Vital Signs: Vital Signs x48h Temp Pulse Resp BP Pulse Ox 11/20/17 04:35 36.8 C 79 18 125/87 H 100 Intake & Output: Intake & Output 11/17/17 11/18/17 11/19/17 11/20/17 23:59 23:59 23:59 23:59 Intake Total 1575 2194.833 480 Output Total 4790 Balance 1575 -2595.167 480 - Lab Results Fish Bones: 11/19/17 06:14
[2017-11-20 09:15] VITALS: BP 136/92
--- NOTE | 2017-11-20 09:20 | Labor Flowsheet ---
Labor Flowsheet Datetime Report Generated by CPN: 11/20/2017 09:20 Datetime: 11/20/2017 08:13 VITAL SIGNS NBP Sys/[place]/Mean (mmHg): 128 : 95 : 101 Pulse: 83 LaborFlag: Labor Datetime: 11/18/2017 06:14 SpO2 (%): 97 Datetime: 11/17/2017 23:35 Stage 2 Comments: viable female Datetime: 11/17/2017 23:30 UTERINE ACTIVITY Monitor Mode: External Frequency (min): 1-3 Quality: Strong Duration (sec): 40-60 Pattern: Normal: <= 5 Contractions in 10 Minutes Resting Tone (Palpate): Relaxed Pitocin Checklist: At Least 1 Acceleration of 15 bpm x 15 Seconds in 30 Minutes or Adequate Variabi lity; No More than 5 Uterine Contractions in 10 Minutes for any 20 Minute Interval; Uterus Palpates S oft between Contractions ASSESSMENT A Monitor Mode: External US FHR Baseline Rate : 160 Variability: Moderate 6-25 bpm Accelerations: 15X15 Decelerations: None Category: Category I Oxygen Method: Room Air Datetime: 11/17/2017 23:15 Contraction Comments: Pt pushing Datetime: 11/17/2017 23:02 Monitor Interventions for UA: [place] Adjusted Datetime: 11/17/2017 23:00 Comments: accels up to 180s noted Anesthesia Level Check: T9 TEACHING Instructional Method: Verbal Plan of Care: Labor Labor/Induction: Labor Stages; Pushing Methods Pain Management: Epidural; Pain Scale/Goals Medications: Antibiotics; Pitocin PTL/PROM: Signs/Symptoms of Infection Datetime: 11/17/2017 22:58 Antibiotics: Ampicillin IV 2 Gm Datetime: 11/17/2017 22:50 Resting Tone IUP (mmHg): 30-40 Intensity IUP (mmHg): 45-70 Eola Units (mmHg): 135 STAGE 2 Pushing: Coached on Pushing; Urge to Push Pushing Position: Pushing with Contractions Pushing Progress: Descent with Pushing Datetime: 11/17/2017 22:43 Temperature (C): 37.8 Datetime: 11/17/2017 22:41 I/O Interventions: Catherine Discontinued Patient Care Comments: 275 urine output Datetime: 11/17/2017 22:36 VAGINAL EXAM Dilatation (cm): 10.0 Effacement (%): 100 Station: 1 Exam by: Milagrosa CNM Vaginal Bleeding: Normal Show Cervix, Consistency: Soft Vaginal Exam Comments: "Pt complete" Datetime: 11/17/2017 22:33 Stage of : Labor Provider Reviewed Strip: Yes COMMUNICATION Communication: Provider at Bedside Notification Reason: Status Update; Status; Labor Status; Uterine Activity; Pain Communication Comments: Milagrosa CNM @ BS Datetime: 11/17/2017 22:26 PAIN Pain Scale: 7 Pain Presence: Intermittent Pain Type: Cramping; Pressure Pain Location: Abdomen Pain Coping: Breathing Through Contractions Pain Assessment Comments: Epidural still controlling pain according to pt. Comfort Measures: Breathing/Relaxation Datetime: 11/17/2017 22:20 PATIENT CARE IV/Blood Work: IV Bolus Started Datetime: 11/17/2017 22:18 Vital Sign Comments: Pt dependent on R. arm which has cuff Datetime: 11/17/2017 21:24 Temperature Route: Oral Datetime: 11/17/2017 21:18 Patient Position/Activity: Right Lateral Datetime: 11/17/2017 20:14 MEDICATIONS Pitocin (milliunits): Increased to @ 8 Datetime: 11/17/2017 20:07 MATERNAL ASSESSMENT Level of Consciousness: Fully Conscious Headache: Occipital; Frontal Breath Sounds, Left: Clear and Equal Breath Sounds, Right: Clear and Equal Nausea/Vomiting: Denies RUQ Epigastric Pain: Denies Maternal Comments: mild swelling romulo. feet and LE Datetime: 11/17/2017 20:04 Medication Comments: IVF increased to 150 ml/hr Datetime: 11/17/2017 18:13 Respirations: 18 Datetime: 11/17/2017 16:29 Monitor Interventions for FHR: Ultrasound Adjusted Datetime: 11/17/2017 16:14 Epidural Procedure Other: Pump Started Datetime: 11/17/2017 16:10 Epidural Procedure: Loading Dose Datetime: 11/17/2017 16:04 ANESTHESIA Anesthesia Plans: Local Datetime: 11/17/2017 16:02 Anesthesia Comments: per WIDE LOAD ESCORT Augustine, LR may remain @250cc/hr Datetime: 11/17/2017 16:00 PROCEDURE TIME OUT Procedure Verify: Correct Patient Identity; Correct Side and Site are Marked; Accurate Procedure Co nsent Form; Agreement on Procedure to be Done; Correct Patient Position Epidural Positioning: Sitting Datetime: 11/17/2017 14:57 Strip Reviewed by: CNM Milagrosa Datetime: 11/17/2017 11:29 Membrane Status: Ruptured Datetime: 11/17/2017 09:10 Cervix, Position: Midposition Datetime: 11/17/2017 09:08 Membranes Rupture Method: Artificial Amniotic Fluid Color: Clear Amniotic Fluid Amount: Moderate Amniotic Fluid Odor: Normal Datetime: 11/17/2017 06:27 Unit Routine: Unit Personnel Datetime: 11/17/2017 05:03 Cervical Ripening Agents: Cytotec @ 50 Datetime: 11/16/2017 20:55 Analgesics/Sedatives: Ambien (mg) @ Datetime: 11/15/2017 19:32 Provider Notified (Name): A.Trevon, CNM Datetime: 11/15/2017 19:30 Pain Relief Measures: Comfort Measures Datetime: 11/15/2017 17:40 FHR Baseline Changes: No Baseline Change Datetime: 11/14/2017 09:01 Pain Goal: 5 DTR's/Clonus: DTRs 2+; No Clonus
--- NOTE | 2017-11-23 14:54 | DISCHARGE SUMMARY ---
Physician: HOWARD Sanchez DATE OF ADMISSION: 11/17/2017 DATE OF DISCHARGE: 11/20/2017 DIAGNOSES ON ADMISSION 1. A 22-year-old G1, P0 at 39.0 weeks' gestation. 2. Nonmedical/logistic induction of labor. 3. Treated as 1 GDM gestational diabetes mellitus secondary to impaired 1-hour glucose tolerance test and borderline 3-hour glucose tolerance test. DIAGNOSES ON DISCHARGE 1. A 22-year-old, G1, P1-0-0-1 status post spontaneous vaginal delivery on . 2. Chorioamnionitis status post treatment with ampicillin and gentamicin. 3. Status post hemorrhage with stable hemoglobin and hematocrit, and no excessive bleeding. BRIEF HISTORY: She is a patient at [facility] who presented on 11/14/2017 for elective nonmedical induction of labor with cervical ripening. The patient was noted to be 4, 70, -2 with a bulging bag of water at admission following effective prostaglandin cervical ripening. She was augmented with AROM and Pitocin, and spontaneously delivered a viable female named Lorena on 11/17/2017 at 2325. Apgars were 7 and 9 at one and five minutes respectively. EBL was 850 mL. The patient had a first-degree laceration that was repaired using a 2-0 Vicryl in the usual fashion under sterile conditions. Bimanual compression and lower uterine segment evacuation x2 for a large amount of clot. Methergine 0.2 mg IM x1 administered and misoprostol 800 mcg buccally administered while continuing bimanual compression. Following management of bleeding and perineal repair, bleeding stabilized and laceration hemostatic and well approximated. She has been doing well in her course. She is ambulating and tolerating a regular diet. She is urinating without difficulty and her lochia is normal. Her pain is well controlled with oral medications. She will be discharged home today on day #3 with prescriptions for ibuprofen, fluconazole, and all-purpose nipple ointment. She intends to follow up with myself at [facility] in 1 week for a visit, and 3 weeks for routine visit. She has been given precautions to call if she has any worsening fevers, chills, abdominal pain, increased bleeding or foul smelling vaginal lochia. TD: 11/22/2017 16:19 correction to 11/17, isaurol11/29/17 CANDI
== END 2017-11-20 08:25 | disposition home or self-care (01) | DRG 768 ==
LOC: WFO 08:30 → FBP 08:32 → OBSVTOIN 11-17 10:33
PROVIDERS: ADMIT Nurse Practitioner Obstetrics & Gynecology; ATTEND Nurse Practitioner Obstetrics & Gynecology
PROC: 3E0P7VZ Introduction of Hormone into Female Reproductive, Via Natural or Artificial Opening (ICD-10-PCS; 2017-11-14)
PROC: 10E0XZZ Delivery of Products of Conception, External Approach (ICD-10-PCS; principal; 2017-11-17)
PROC: 0W3R7ZZ Control Bleeding in Genitourinary Tract, Via Natural or Artificial Opening (ICD-10-PCS; 2017-11-17)
PROC: 3E033VJ Introduction of Other Hormone into Peripheral Vein, Percutaneous Approach (ICD-10-PCS; 2017-11-17)
PROC: 10907ZC Drainage of Amniotic Fluid, Therapeutic from Products of Conception, Via Natural or Artificial Opening (ICD-10-PCS; 2017-11-17)
PROC: 0HQ9XZZ Repair Perineum Skin, External Approach (ICD-10-PCS; 2017-11-17)
PROC: 10H07YZ Insertion of Other Device into Products of Conception, Via Natural or Artificial Opening (ICD-10-PCS; 2017-11-17)
DX: O24.420 Gestational diabetes mellitus in childbirth, diet controlled (principal); O41.1230 Chorioamnionitis, third trimester, not applicable or unspecified; O72.1 Other immediate postpartum hemorrhage; Z37.0 Single live birth; O76 Abnormality in fetal heart rate and rhythm complicating labor and delivery; O70.0 First degree perineal laceration during delivery; O92.12 Cracked nipple associated with the puerperium; Z3A.39 39 weeks gestation of pregnancy; Z60.8 Other problems related to social environment
CPT/HCPCS: 36415; 59200; 80170; 85025; 86850; 86900; 86901

== ENCOUNTER 2018-09-29 20:48 | Emergency (ER) | payer OTHER ==
[2018-09-29] MEDS ORDERED: SODIUM CHLORIDE 0.9% 1,000 ML IV ONE (21:18)
[2018-09-29] MEDS ORDERED: METOCLOPRAMIDE 10 MG/2 ML VIAL IVP STA (21:18)
[2018-09-29 21:45] LABS: BASOPHILS % (AUTO) 0.5 %; EOSINOPHILS # (AUTO) 0.1 10^3/uL (0.0-0.7); EOSINOPHILS % (AUTO) 1.7 %; HGB - HEMOGLOBIN 13.1 g/dL (12.0-16.0); LYMPHOCYTES # (AUTO) 2.9 10^3/uL (1.5-3.5); LYMPHOCYTES % (AUTO) 34.2 %; MEAN CORPUSCULAR HEMOGLOBIN 31.7 pg (27.0-31.0); MEAN CORPUSCULAR HGB CONC 35.6 g/dL (32.0-36.0); MEAN CORPUSCULAR VOLUME 89.3 fL (81.0-99.0); MEAN PLATELET VOLUME 6.8 fL (7.9-10.8); MONOCYTES # (AUTO) 0.8 10^3/uL (0.0-1.0); MONOCYTES % (AUTO) 9.4 %; NEUTROPHILS # (AUTO) 4.6 10^3/uL (1.5-6.6); NEUTROPHILS % (AUTO) 54.2 %; PLT - PLATELET COUNT 329 10^3/uL (130-450); RED BLOOD COUNT 4.12 10^6/uL (4.20-5.40); RED CELL DISTRIBUTION WIDTH 12.8 % (12.0-15.0); WHITE BLOOD COUNT 8.5 x10^3/uL (4.8-10.8)
[2018-09-29 22:07] LABS: ALBUMIN 3.8 g/dL (3.2-5.5); ALKALINE PHOSPHATASE 86 IU/L (42-121); ALT ALANINE AMINOTRANSFERASE 23 IU/L (10-60); AST ASPARTATE AMINOTRANSFERASE 22 IU/L (10-42); BILIRUBIN,TOTAL 0.4 mg/dL (0.2-1.0); BUN - BLOOD UREA NITROGEN 6 mg/dL (6-20); CALCIUM 8.5 mg/dL (8.5-10.3); CARBON DIOXIDE - CO2 24 mmol/L (21-32); CHLORIDE 102 mmol/L (101-111); CREATININE 0.3 mg/dL (0.4-1.0); GFR - MDRD 276 (>89); GLUCOSE 95 mg/dL (70-100); LIPASE 34 U/L (22-51); SODIUM 135 mmol/L (135-145); TOTAL PROTEIN 7.5 g/dL (6.7-8.2)
[2018-09-29 22:12] LABS: HCG,QUALITATIVE BLOOD NEGATIVE
[2018-09-29 22:58] LABS: BILIRUBIN,URINE NEGATIVE (NEGATIVE); GLUCOSE, URINE (UA) NEGATIVE (NEGATIVE); KETONES,URINE (UA) NEGATIVE (NEGATIVE); LEUKOCYTE ESTERASE, URINE TRACE (NEGATIVE); NITRITE,URINE NEGATIVE (NEGATIVE); OCCULT BLOOD,URINE LARGE (NEGATIVE); PROTEIN,URINE NEGATIVE (NEGATIVE); UROBILINOGEN,URINE 0.2 (NORMAL) E.U./dL (NORMAL)
[2018-09-29 22:59] LABS: CLARITY,URINE CLEAR (CLEAR)
[2018-09-29 23:08] LABS: BACTERIA,URINE Rare /HPF (None Seen); SQUAMOUS EPITHELIAL CELL,UR MOD Squamous (<= Few)
--- NOTE | 2018-09-29 23:12 | ED Physician Documentation ---
History of Present Illness - Stated complaint Stated Complaint: DIZZINESS/NAUSEA - Chief complaint Chief Complaint: General - Additonal information Additional information: 22-year-old who presents the emergency department with complaints of dizziness and nausea. The patient's symptoms started 3 days ago with fever, chills, body aches and general fatigue. Today the patient reports feeling lightheaded and dizzy with nausea. The patient has been experiencing some diarrhea. The patient denies any focal area of abdominal pain or ongoing abdominal pain. No reports of URI symptoms or shortness of breath. No improvement with over-the-co unter therapy. Symptoms are described as mild. No other associated symptoms Review of Systems Constitutional: reports: Fever, Chills, Myalgias, Fatigue Eyes: denies: Discharge Ears: denies: Ear pain Nose: denies: Congestion Throat: denies: Sore throat Cardiac: denies: Chest pain / pressure Respiratory: denies: Cough GI: reports: Nausea, Vomiting, Diarrhea. denies: Abdominal Pain, Abdominal Swelling : denies: Dysuria Musculoskeletal: denies: Back pain Neurologic: denies: Generalized weakness, Difficulty speaking PD PAST MEDICAL HISTORY - Past Medical History Past Medical History: Yes Cardiovascular: None Respiratory: None Neuro: None Endocrine/Autoimmune: Other GI: None : None HEENT: None Psych: None Musculoskeletal: None Derm: None - Past Surgical History Past Surgical History: No - Present Medications Home Medications: Ambulatory Orders Medication Instructions Recorded Confirmed Ondansetron HCl [Zofran] 4 mg PO Q6HR PRN #30 tablet 09/29/18 - Allergies Allergies/Adverse Reactions: Allergies Allergy/AdvReac Type Severity Reaction Status Date / Time No Known Drug Allergies Allergy Verified 09/29/18 20:55 - Social History Does the pt smoke?: No Smoking Status: Never smoker Does the pt drink ETOH?: No Does the pt have substance abuse?: No - Immunizations Immunizations are current?: Yes - POLST Patient has POLST: No PD ED PE NORMAL - General General: Alert and oriented X 3, No acute distress - HEENT HEENT: Atraumatic, PERRL, EOMI, Ears normal - Cardiac Cardiac: RRR, Strong equal pulses - Respiratory Respiratory: No respiratory distress, Clear bilaterally - Abdomen Abdomen: Soft, Non tender, Non distended - Derm Derm: Normal color - Extremities Extremities: No deformity, No edema - Neuro Neuro: Alert and oriented X 3, Normal speech - Psych Psych: Normal affect Results - Vitals Vitals: Vital Signs - 24 hr 09/29/18 09/29/18 09/29/18 20:51 21:27 21:59 Temperature 36.2 C L Heart Rate 80 87 Respiratory 18 16 16 Rate Blood Pressure 142/94 H 140/89 H O2 Saturation 100 99 09/29/18 09/29/18 09/29/18 22:22 22:47 23:16 Temperature 36.2 C L Heart Rate 70 79 Respiratory 16 17 14 Rate Blood Pressure 133/86 H 121/77 O2 Saturation 98 100 100 09/29/18 23:18 Temperature Heart Rate Respiratory 16 Rate Blood Pressure O2 Saturation Oxygen O2 Source Room air - Labs Labs: Laboratory Tests 09/29/18 09/29/18 09/29/18 21:30 21:30 21:30 WBC 8.5 RBC 4.12 L Hgb 13.1 Hct 36.8 L MCV 89.3 MCH 31.7 H MCHC 35.6 RDW 12.8 Plt Count 329 MPV 6.8 L Neut # (Auto) 4.6 Lymph # (Auto) 2.9 [place] # (Auto) 0.8 Eos # (Auto) 0.1 Baso # (Auto) 0.0 Absolute Nucleated RBC 0.01 Nucleated RBC % 0.1 Sodium 135 Potassium 3.4 L Chloride 102 Carbon Dioxide 24 Anion Gap 9.0 BUN 6 Creatinine 0.3 L Estimated GFR (MDRD) 276 Glucose 95 Calcium 8.5 Total Bilirubin 0.4 AST 22 ALT 23 Alkaline Phosphatase 86 Total Protein 7.5 Albumin 3.8 Globulin 3.7 Albumin/Globulin Ratio 1.0 Lipase 34 Serum HCG, Qual NEGATIVE Urine Color YELLOW Urine Clarity CLEAR Urine pH 6.0 Ur Specific [place] 1.020 Urine Protein NEGATIVE Urine Glucose (UA) NEGATIVE Urine Ketones NEGATIVE Urine Occult Blood LARGE H Urine Nitrite NEGATIVE Urine Bilirubin NEGATIVE Urine Urobilinogen 0.2 (NORMAL) Ur Leukocyte Esterase TRACE H Urine RBC 6-10 H Urine WBC 0-3 Ur Squamous Epith Cells MOD Squamous H Urine Bacteria Rare Ur Microscopic Review INDICATED Urine Culture Comments NOT INDICATED Influenza A (Rapid) Influenza B (Rapid) 09/29/18 21:36 WBC RBC Hgb Hct MCV MCH MCHC RDW Plt Count MPV Neut # (Auto) Lymph # (Auto) [place] # (Auto) Eos # (Auto) Baso # (Auto) Absolute Nucleated RBC Nucleated RBC % Sodium Potassium Chloride Carbon Dioxide Anion Gap BUN Creatinine Estimated GFR (MDRD) Glucose Calcium Total Bilirubin AST ALT Alkaline Phosphatase Total Protein Albumin Globulin Albumin/Globulin Ratio Lipase Serum HCG, Qual Urine Color Urine Clarity Urine pH Ur Specific [place] Urine Protein Urine Glucose (UA) Urine Ketones Urine Occult Blood Urine Nitrite Urine Bilirubin Urine Urobilinogen Ur Leukocyte Esterase Urine RBC Urine WBC Ur Squamous Epith Cells Urine Bacteria Ur Microscopic Review Urine Culture Comments Influenza A (Rapid) Negative Influenza B (Rapid) Negative PD MEDICAL DECISION MAKING - ED course ED course: On reevaluation the patient is resting comfortably and her symptoms appear to be under control. Presently the patient appears appropriate for discharge and ongoing outpatient management. There is no clinical findings to suggest appendicitis or an acute surgical intra-abdominal process. The patient's symptoms most likely stem from a viral etiology. I discussed the findings and plan with the patient understands and agrees. I discussed warning signs and recommended returning to the emergency department immediately for any worsening or any concerns Departure - Departure Disposition: 01 Home, Self Care Clinical Impression: Dizziness Nausea & vomiting Qualifiers: Vomiting type: unspecified Vomiting Intractability: non-intractable Qualified Code(s): R11.2 - Nausea with vomiting, unspecified Diarrhea Qualifiers: Diarrhea type: unspecified type Qualified Code(s): R19.7 - Diarrhea, unspecified Condition: Good Instructions: ED Dizziness UKO Follow-Up: Jordan Leonardo MD [Primary Care Provider] - Prescriptions: Ondansetron HCl [Zofran] 4 mg PO Q6HR PRN #30 tablet PRN Reason: Nausea / Vomiting Comments: Please return to the emergency department for worsening symptoms or any concerns
[2018-09-29 23:17] VITALS: BP 121/77
== END 2018-09-29 23:19 | disposition home or self-care (01) ==
LOC: ED 20:48
DX: R42 Dizziness and giddiness (principal); R11.2 Nausea with vomiting, unspecified; R19.7 Diarrhea, unspecified
CPT/HCPCS: 36415; 80053; 81001; 83690; 84703; 85025; 87275; 87276; 96361; 96374; 99283; 99284; J2765; 81003; 87086

== ENCOUNTER 2019-04-29 12:04 | Emergency (ER) | payer MEDICAID, OTHER ==
[2019-04-29 12:20] VITALS: BP 135/80
--- NOTE | 2019-04-29 12:24 | ED Physician Documentation ---
PD HPI LOWER EXT INJURY - Stated complaint Stated Complaint: L ANKLE INJ/HEAD INJ/GLF - Chief complaint Chief Complaint: Ext Problem - History obtained from History obtained from: Patient - History of Present Illness PD HPI LOW EXT INJURY LOCATION: Left, Ankle Type of injury: Fall Where injury occurred: School Timing - onset: How many days ago (2) Timing - details: Abrupt onset Pain level now: 7 Improved by: Nothing Worsened by: Moving Associated symptoms: No: Weakness, Numbness, Tingling Recently seen: Emergency Dept - Additional information Additional information: This is a 23-year-old woman who is in college and was at school managed to fall off of a simulator 3 to 5 feet landing on the ground. She had her head but did they stated she was out for about 3 to 5 seconds. They sent her to be evaluated at [facility] emergency department where x-rays were taken of her left ankle she was told it was sprained placed in an Alex wrap and on crutches and a head CT was done That was negative and she was diagnosed with a mild concussion. She was told to return to the emergency department if her symptoms worsen now she is having throbbing pain: Pain in the ankle and is having neck pain with a throbbing headache despite taking ibuprofen 400 mg every 6 hours. She does have crutches in the car that she is been using at home. She is rating her current pain at a 7 out of 10 despite 400 mg of ibuprofen 3-1/2 hours ago. She has not had any seizure activity denies numbness or tingling anywhere. Denies shortness of breath, chest or abdominal pain. The patient does not have a primary care provider because she just recently got out of the [employer] and her significant other is deployed she like to send the [email or web address] message to him because her mom is leaving for [place] tomorrow night and she has a 1-year-old child at home. Review of Systems Constitutional: denies: Fever Eyes: denies: Loss of vision Cardiac: denies: Chest pain / pressure Respiratory: denies: Dyspnea GI: denies: Abdominal Pain Musculoskeletal: reports: Neck pain, Extremity pain, Extremity swelling, Joint swelling Neurologic: reports: LOC. denies: Generalized weakness, Numbness PD PAST MEDICAL HISTORY - Past Medical History Cardiovascular: None Respiratory: None Neuro: None Endocrine/Autoimmune: Other GI: None : None HEENT: None Psych: None Musculoskeletal: None Derm: None - Past Surgical History Past Surgical History: No - Present Medications Home Medications: Ambulatory Orders Medication Instructions Recorded Confirmed Hydrocodone/Acetaminophen 1 - 2 each PO Q6H PRN #10 tablet 04/29/19 [Hydrocodon-Acetaminophen 5-325] Ibuprofen [Motrin] 800 mg PO 04/29/19 - Allergies Allergies/Adverse Reactions: Allergies Allergy/AdvReac Type Severity Reaction Status Date / Time No Known Drug Allergies Allergy Verified 09/29/18 20:55 - Social History Does the pt smoke?: No Smoking Status: Never smoker Does the pt drink ETOH?: No Does the pt have substance abuse?: No - Immunizations Immunizations are current?: Yes - POLST Patient has POLST: No PD ED PE NORMAL - Vitals Vital signs reviewed: Yes - General General: Alert and oriented X 3, No acute distress, Well developed/nourished, Other (Patient became very tearful during the interview concerned about caring for her 1-year-old child at home without her mother to help her) - HEENT HEENT: Atraumatic, PERRL, EOMI, Moist mucous membranes - Neck Neck: Supple, no meningeal sign, No bony TTP, Thyroid normal - Cardiac Cardiac: RRR - Respiratory Respiratory: No respiratory distress - Back Back: No spinal TTP, Other (Tenderness over the right trapezius muscle without palpable knots.) - Derm Derm: Normal color, Warm and dry, No rash - Extremities Extremities: Other (Swelling to the lateral left ankle with bruising. There is pain over the lateral malleolus and the tip of the medial malleolus. She has a 2+ dorsalis pedis pulse is able to wiggle her toes and sensation is intact to light touch.) - Neuro Neuro: Alert and oriented X 3, No motor deficit, No sensory deficit, Normal speech - Psych Psych: Other (Tearful) Results - Vitals Vitals: Vital Signs - 24 hr 04/29/19 12:16 Temperature 36.7 C Heart Rate 90 Respiratory 14 Rate Blood Pressure 135/80 H O2 Saturation 99 Oxygen O2 Source Room air PD MEDICAL DECISION MAKING - ED course Complexity details: reviewed old records, d/w patient ED course: I was able to get a hold of the records from [facility] emergency department including the radiologist over reads on her head CT and ankle. There was no obvious ankle fracture. Patient was given 1 hydrocodone tablet here in the emergency department. She has pretty significant swelling and pain in that ankle. I did tell her I could provide a very small prescription of hydrocodone, but she should continue to use the ibuprofen and ice and elevate this. Strict no weightbearing. I want to put her in an air splint in addition to the Alex bandage and she is encouraged to start gentle range of motion exercises. I [place] [facility] [place] She did contact the [place] apparently and left a message but we have not received any contact from them at this point. She is encouraged to follow-up with a primary care provider especially if this continues to bother her after 10 to 14 days. Departure - Departure Disposition: 01 Home, Self Care Clinical Impression: Sprain Strain, cervical Qualifiers: Encounter type: subsequent encounter Qualified Code(s): S16.1XXD - Strain of muscle, fascia and tendon at neck level, subsequent encounter Condition: Good Instructions: ED Sprain Strain Neck, ED Sprain Ankle Follow-Up: [facility] [Provider Group] Prescriptions: Hydrocodone/Acetaminophen [Hydrocodon-Acetaminophen 5-325] 1 - 2 each PO Q6H PRN #10 tablet PRN Reason: pain Comments: Ice and elevate the ankle as much as possible. May take up to 4 ibuprofen tablets every 8 hours [id number] with food. Use the hydrocodone if needed but do not take this with additional Tylenol or drive or operate machinery with it. Start gentle range of motion exercises with the ankle to keep it from stiffening up. Wear the air splint for 2 weeks and I would recommend non- weightbearing with the crutches for the next 4 to 5 days. Follow-up with the primary care provider for continued pain. Contact the [facility] and family [facility] [place] [phone] during this time
[2019-04-29] MEDS ORDERED: HYDROcod/ACETAM 5/325 MG TABLET PO STA (13:28)
== END 2019-04-29 14:25 | disposition home or self-care (01) ==
LOC: ED 12:04
DX: S93.402A Sprain of unspecified ligament of left ankle, initial encounter (principal); S16.1XXD Strain of muscle, fascia and tendon at neck level, subsequent encounter; W17.89XA Other fall from one level to another, initial encounter; Y92.214 College as the place of occurrence of the external cause
CPT/HCPCS: 99282; 99284; A9270

== ENCOUNTER 2020-09-05 18:17 | Emergency (ER) | payer OTHER, MEDICAID ==
--- NOTE | 2020-09-05 19:27 | ED Physician Documentation ---
PD HPI FEMALE - Stated complaint Stated Complaint: CRAMPING & BLEEDING + POSSIBLE PREG - Chief complaint Chief Complaint: Abd Pain - History obtained from History obtained from: Patient - History of Present Illness Timing - onset: How many weeks ago (2) Timing - details: Gradual onset Pain level max: 3 Associated symptoms: Pelvic pain, Vaginal bleeding. No: Fever, Back pain, Vaginal pain, Dysuria, Urinary frequency Contributing factors: Recently seen: Not recently seen - Additional information Additional information: patient's LMP was 07/28/20. She had a positive home test 3 weeks ago. She has had vaginal bleeding (spotting) x 2 weeks, but increased bleeding since earlier today as well as intermittent pelvic cramping. patient says her blood type is O+. This is her second (2018 had vaginal delivery 39 weeks, nonmedical induction) Review of Systems Constitutional: denies: Fever Cardiac: reports: Reviewed and negative Respiratory: reports: Reviewed and negative GI: denies: Abdominal Pain (pelvic cramping but not abdominal pain per se), Nausea, Vomiting : reports: Vaginal bleeding, Now EGA. denies: Dysuria, Frequency PD PAST MEDICAL HISTORY - Past Medical History Cardiovascular: None Respiratory: None Neuro: None Endocrine/Autoimmune: Other GI: None : None HEENT: None Psych: None Musculoskeletal: None Derm: None - Past Surgical History Past Surgical History: No - Present Medications Home Medications: Ambulatory Orders Medication Instructions Recorded Confirmed Cholecalciferol (Vitamin D3) 1 cap PO DAILY 09/05/20 09/05/20 [Vitamin D3] - Allergies Allergies/Adverse Reactions: Allergies Allergy/AdvReac Type Severity Reaction Status Date / Time No Known Drug Allergies Allergy Verified 09/05/20 19:30 - Social History Does the pt smoke?: No Smoking Status: Never smoker Does the pt drink ETOH?: No Does the pt have substance abuse?: No - Immunizations Immunizations are current?: Yes - POLST Patient has POLST: No PD ED PE NORMAL - Vitals Vital signs reviewed: Yes - Cardiac Cardiac: RRR, No murmur - Respiratory Respiratory: No respiratory distress, Clear bilaterally - Abdomen Abdomen: Soft, Non tender, Non distended - Back Back: No CVA TTP Results - Vitals Vitals: Vital Signs - 24 hr 09/05/20 09/05/20 09/05/20 18:34 19:41 21:14 Temperature 37.1 C 37.0 C 36.5 C Heart Rate 95 85 93 Respiratory 18 16 14 Rate Blood Pressure 141/94 H 131/86 H 131/80 H O2 Saturation 100 100 98 09/05/20 23:25 Temperature 36.5 C Heart Rate 88 Respiratory 16 Rate Blood Pressure 130/70 O2 Saturation 100 Oxygen O2 Source Room air - Labs Labs: Laboratory Tests 09/05/20 09/05/20 09/05/20 19:22 19:22 19:22 WBC 10.4 RBC 4.26 Hgb 13.5 Hct 40.7 MCV 95.5 MCH 31.7 H MCHC 33.2 RDW 11.9 L Plt Count 396 MPV 8.7 Neut # (Auto) 6.4 Lymph # (Auto) 3.0 [place] # (Auto) 0.7 Eos # (Auto) 0.2 Baso # (Auto) 0.1 Absolute Nucleated RBC 0.00 Nucleated RBC % 0.0 Sodium 137 Potassium 3.7 Chloride 102 Carbon Dioxide 24 Anion Gap 11.0 BUN 9 Creatinine 0.5 Estimated GFR (MDRD) 150 Glucose 95 Calcium 9.5 HCG, Quant 51439.00 Urine Color Urine Clarity Urine pH Ur Specific [place] Urine Protein Urine Glucose (UA) Urine Ketones Urine Occult Blood Urine Nitrite Urine Bilirubin Urine Urobilinogen Ur Leukocyte Esterase Urine RBC Urine WBC Ur Squamous Epith Cells Urine Bacteria Ur Microscopic Review Urine Culture Comments 09/05/20 19:36 WBC RBC Hgb Hct MCV MCH MCHC RDW Plt Count MPV Neut # (Auto) Lymph # (Auto) [place] # (Auto) Eos # (Auto) Baso # (Auto) Absolute Nucleated RBC Nucleated RBC % Sodium Potassium Chloride Carbon Dioxide Anion Gap BUN Creatinine Estimated GFR (MDRD) Glucose Calcium HCG, Quant Urine Color YELLOW Urine Clarity CLEAR Urine pH 6.5 Ur Specific [place] 1.015 Urine Protein NEGATIVE Urine Glucose (UA) NEGATIVE Urine Ketones NEGATIVE Urine Occult Blood SMALL H Urine Nitrite NEGATIVE Urine Bilirubin NEGATIVE Urine Urobilinogen 0.2 (NORMAL) Ur Leukocyte Esterase NEGATIVE Urine RBC 0-5 Urine WBC 0-3 Ur Squamous Epith Cells RARE Squamous Urine Bacteria None Seen Ur Microscopic Review INDICATED Urine Culture Comments NOT INDICATED - Rads (name of study) pelvic US Radiology: Prelim report reviewed, See rad report PD MEDICAL DECISION MAKING - ED course Complexity details: reviewed results, re-evaluated patient, considered steve bass/w patient ED course: US indicates twin gestation with small perigestational hemorrhages. Patient indicates, on reevaluation, her bleeding has attenuated during ED stay and pelvic cramping resolved. We discussed results, need for f/u with yard supervisor cotton gin, return if worse, and though her tests are reassuring, miscarriage is still possible Departure - Departure Disposition: 01 Home, Self Care Clinical Impression: Threatened Condition: Good Instructions: ED Miscarriage Poss Follow-Up: Elba Martinez MD [Provider Admit Priv/Credential] - Within 1 week Discharge Date/Time: 09/05/20 23:27
[2020-09-05 19:42] LABS: CALCIUM 9.5 mg/dL (8.5-10.3); CREATININE 0.5 mg/dL (0.4-1.0)
[2020-09-05 19:47] LABS: BASOPHILS # (AUTO) 0.1 10^3/uL (0.0-0.1); BASOPHILS % (AUTO) 0.5 %; EOSINOPHILS # (AUTO) 0.2 10^3/uL (0.0-0.7); EOSINOPHILS % (AUTO) 1.7 %; HGB - HEMOGLOBIN 13.5 g/dL (12.0-16.0); LYMPHOCYTES % (AUTO) 29.3 %; MEAN CORPUSCULAR HEMOGLOBIN 31.7 pg (27.0-31.0); MEAN CORPUSCULAR HGB CONC 33.2 g/dL (32.0-36.0); MEAN CORPUSCULAR VOLUME 95.5 fL (81.0-99.0); MEAN PLATELET VOLUME 8.7 fL (7.9-10.8); MONOCYTES # (AUTO) 0.7 10^3/uL (0.0-1.0); MONOCYTES % (AUTO) 6.7 %; NEUTROPHILS # (AUTO) 6.4 10^3/uL (1.5-6.6); NEUTROPHILS % (AUTO) 61.3 %; PLT - PLATELET COUNT 396 10^3/uL (130-450); RED BLOOD COUNT 4.26 10^6/uL (4.20-5.40); RED CELL DISTRIBUTION WIDTH 11.9 % (12.0-15.0); WHITE BLOOD COUNT 10.4 x10^3/uL (4.8-10.8)
[2020-09-05 19:52] LABS: BILIRUBIN,URINE NEGATIVE (NEGATIVE); GLUCOSE, URINE (UA) NEGATIVE (NEGATIVE); KETONES,URINE (UA) NEGATIVE (NEGATIVE); LEUKOCYTE ESTERASE, URINE NEGATIVE (NEGATIVE); NITRITE,URINE NEGATIVE (NEGATIVE); OCCULT BLOOD,URINE SMALL (NEGATIVE); PH,URINE 6.5 PH (5.0-7.5); PROTEIN,URINE NEGATIVE (NEGATIVE); UROBILINOGEN,URINE 0.2 (NORMAL) E.U./dL (NORMAL)
[2020-09-05 20:16] LABS: CLARITY,URINE CLEAR (CLEAR)
[2020-09-05 20:18] LABS: RBC,URINE 0-5 /HPF (0-5)
[2020-09-05 20:19] LABS: BACTERIA,URINE None Seen /HPF (None Seen); SQUAMOUS EPITHELIAL CELL,UR RARE Squamous (<= Few)
--- NOTE | 2020-09-05 22:32 | Ultrasound Report ---
PROCEDURE: OB First Trimester INDICATIONS: , vaginal bleeding OUTSIDE/PRIOR DATING DATA: Last menstrual period (LMP): 07/28/2020. LMP-based estimated date of delivery (LATRELL): 05/04/2021. TECHNIQUE: Real-time scanning was performed of the fetus and maternal pelvic organs, with image documentation. COMPARISON: None. FINDINGS: Embryo: There appears to be 2 separate intrauterine gestational saclike structures. One measures sally roximately 0.69 cm which correlates with a gestational age of approximately 5 weeks and 3 days. A yol k sac is visualized. No pole. The second measures 0.84 cm which correlates with an estimated ge stational age of approximately 5 weeks and 4 days. A yolk sac is also visualized. No pole seen. No cardiac activity identified in either sac. Small para gestational hemorrhage is are noted a djacent to each gestational sac. Measurement variability in dating: +/- 4 weeks by LMP, +/- 7 days by mean sac diameter (use before 6 weeks gestation if crown-rump length not able to be measured), +/- 5 days by crown-rump length (6-12 weeks gestation). Maternal organs: Simple appearing right ovarian cyst. No suspicious ovarian or adnexal mass lesions. Suggestion of possible arcuate uterine morphology. IMPRESSION: 1. There appears to be twin intrauterine gestations with estimated gestational age of 5 weeks and 3 d ays, and 5 weeks and 4 days respectively. Gestational age measured by mean gestational sac diameter. No pole identified in either sac. No cardiac activity visualized on today's study. 2. Small perigestational hemorrhages identified. Recommend continued clinical surveillance, serial quantitative hCG measurements, and short interval f ollow-up ultrasound to document expected progression. Preliminary findings were given to Dr. Hines by the project controls specialist at time of study completion. Reviewed by: Simon Casas MD on 09/05/2020 10:31 PM PST Approved by: Simon Casas MD on 09/05/2020 10:31 PM PST Station ID: [id number]
--- NOTE | 2020-09-05 22:34 | Ultrasound Report ---
PROCEDURE: OB Transvaginal INDICATIONS: , vaginal bleeding TECHNIQUE: Transvaginal imaging was performed for better visualization of intrauterine and pelvic str uctures. COMPARISON: None. Embryo: There appears to be 2 separate intrauterine gestational saclike structures. One measures sally roximately 0.69 cm which correlates with a gestational age of approximately 5 weeks and 3 days. A yol k sac is visualized. No pole. The second measures 0.84 cm which correlates with an estimated ge stational age of approximately 5 weeks and 4 days. A yolk sac is also visualized. No pole seen. No cardiac activity identified in either sac. Small para gestational hemorrhage is are noted a djacent to each gestational sac. Measurement variability in dating: +/- 4 weeks by LMP, +/- 7 days by mean sac diameter (use before 6 weeks gestation if crown-rump length not able to be measured), +/- 5 days by crown-rump length (6-12 weeks gestation). Maternal organs: Simple appearing right ovarian cyst. No suspicious ovarian or adnexal mass lesions. Suggestion of possible arcuate uterine morphology. IMPRESSION: 1. There appears to be twin intrauterine gestations with estimated gestational age of 5 weeks and 3 d ays, and 5 weeks and 4 days respectively. Gestational age measured by mean gestational sac diameter. No pole identified in either sac. No cardiac activity visualized on today's study. 2. Small perigestational hemorrhages identified. Recommend continued clinical surveillance, serial quantitative hCG measurements, and short interval f ollow-up ultrasound to document expected progression. Preliminary findings were given to Dr. Hines by the supervisor crack off at time of study completion. Reviewed by: Simon Casas MD on 09/05/2020 10:32 PM PST Approved by: Simon Casas MD on 09/05/2020 10:32 PM PST Station ID: [id number]
[2020-09-05 23:31] VITALS: BP 130/70
== END 2020-09-05 23:27 | disposition home or self-care (01) ==
LOC: ED 18:17
DX: O20.0 Threatened abortion (principal); O30.001 Twin pregnancy, unspecified number of placenta and unspecified number of amniotic sacs, first trimester; Z3A.01 Less than 8 weeks gestation of pregnancy
CPT/HCPCS: 36415; 80048; 81001; 81003; 84702; 85025; 87086; 99284

== ENCOUNTER 2020-10-08 01:56 | Emergency (ER) | payer OTHER, MEDICAID ==
[2020-10-08 02:26] LABS: BILIRUBIN,URINE NEGATIVE (NEGATIVE); GLUCOSE, URINE (UA) NEGATIVE (NEGATIVE); KETONES,URINE (UA) NEGATIVE (NEGATIVE); LEUKOCYTE ESTERASE, URINE NEGATIVE (NEGATIVE); NITRITE,URINE NEGATIVE (NEGATIVE); OCCULT BLOOD,URINE MODERATE (NEGATIVE); PROTEIN,URINE NEGATIVE (NEGATIVE); UROBILINOGEN,URINE 0.2 (NORMAL) E.U./dL (NORMAL)
[2020-10-08 02:34] LABS: BACTERIA,URINE Rare /HPF (None Seen); CLARITY,URINE CLEAR (CLEAR); RBC,URINE 0-5 /HPF (0-5); SQUAMOUS EPITHELIAL CELL,UR FEW Squamous (<= Few); WBC,URINE 0-3 /HPF (0-5)
[2020-10-08 02:41] LABS: BASOPHILS # (AUTO) 0.1 10^3/uL (0.0-0.1); BASOPHILS % (AUTO) 0.6 %; EOSINOPHILS # (AUTO) 0.2 10^3/uL (0.0-0.7); EOSINOPHILS % (AUTO) 1.9 %; HCT - HEMATOCRIT 36.5 % (37.0-47.0); HGB - HEMOGLOBIN 12.4 g/dL (12.0-16.0); LYMPHOCYTES # (AUTO) 2.9 10^3/uL (1.5-3.5); LYMPHOCYTES % (AUTO) 33.6 %; MEAN CORPUSCULAR HEMOGLOBIN 31.3 pg (27.0-31.0); MEAN CORPUSCULAR VOLUME 92.2 fL (81.0-99.0); MEAN PLATELET VOLUME 8.9 fL (7.9-10.8); MONOCYTES # (AUTO) 0.6 10^3/uL (0.0-1.0); MONOCYTES % (AUTO) 7.1 %; NEUTROPHILS # (AUTO) 4.8 10^3/uL (1.5-6.6); NEUTROPHILS % (AUTO) 56.6 %; PLT - PLATELET COUNT 339 10^3/uL (130-450); RED BLOOD COUNT 3.96 10^6/uL (4.20-5.40); RED CELL DISTRIBUTION WIDTH 11.5 % (12.0-15.0); WHITE BLOOD COUNT 8.5 x10^3/uL (4.8-10.8)
[2020-10-08] MEDS ORDERED: ACETAMINOPHEN 325 MG TABLET PO STA (02:49)
--- NOTE | 2020-10-08 02:51 | ED Physician Documentation ---
History of Present Illness - Stated complaint Stated Complaint: FEMALE - Chief complaint Chief Complaint: Abd Pain - History obtained from History obtained from: Patient - Additonal information Additional information: 24-year-old woman, G2, P1 at 10 weeks gestation with Twin complicated by perigestational hemorrhage diagnosed in August, last menstrual period July 28 presents with sudden onset vaginal bleeding upon waking late this evening associated with passage of clots when she sat on the toilet. She also feels that she had some clear fluid that felt like her water breaking. Bleeding was associated with mild cramping bilateral lower abdominal pain that is constant, nonradiating, still present, without exac/relieving factors. denies urinary sx, back pain, n/v or fevers. Review of Systems Ten Systems: 10 systems reviewed and negative Constitutional: denies: Fever Cardiac: denies: Chest pain / pressure Respiratory: denies: Dyspnea GI: reports: Abdominal Pain. denies: Nausea, Vomiting : reports: Vaginal bleeding. 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[employer]IONS: None : None HEENT: None Psych: None Musculoskeletal: None Derm: None - Past Surgical History Past Surgical History: No - Present Medications Home Medications: Ambulatory Orders Medication Instructions Recorded Confirmed Vit No.129/Iron/Folic 1 each PO DAILY 10/08/20 10/08/20 [ Tablet] - Allergies Allergies/Adverse Reactions: Allergies Allergy/AdvReac Type Severity Reaction Status Date / Time No Known Drug Allergies Allergy Verified 10/08/20 02:12 - Social History Does the pt smoke?: No Smoking Status: Never smoker Does the pt drink ETOH?: No Does the pt have substance abuse?: No - Immunizations Immunizations are current?: Yes - POLST Patient has POLST: No PD ED PE NORMAL - Vitals Vital signs reviewed: Yes - General General: Alert and oriented X 3, No acute distress, Well developed/nourished - HEENT HEENT: Atraumatic, PERRL, EOMI - Neck Neck: Supple, no meningeal sign - Cardiac Cardiac: RRR - Respiratory Respiratory: No respiratory distress, Clear bilaterally - Abdomen Abdomen: Non tender, Non distended, Other (Discomfort on palpation of Bilateral lower quadrant) - Back Back: No CVA TTP - Derm Derm: Normal color - Extremities Extremities: No deformity, No edema - Neuro Neuro: Alert and oriented X 3 - Psych Psych: Normal mood, Normal affect Results - Vitals Vitals: Vital Signs - 24 hr 10/08/20 10/08/20 02:05 04:16 Temperature 36.2 C L 36.8 C Heart Rate 88 72 Respiratory 16 16 Rate Blood Pressure 129/72 133/79 H O2 Saturation 100 100 Oxygen O2 Source Room air - Labs Labs: Laboratory Tests 10/08/20 10/08/20 10/08/20 02:18 02:30 02:30 WBC 8.5 RBC 3.96 L Hgb 12.4 Hct 36.5 L MCV 92.2 MCH 31.3 H MCHC 34.0 RDW 11.5 L Plt Count 339 MPV 8.9 Neut # (Auto) 4.8 Lymph # (Auto) 2.9 [place] # (Auto) 0.6 Eos # (Auto) 0.2 Baso # (Auto) 0.1 Absolute Nucleated RBC 0.00 Nucleated RBC % 0.0 Sodium 137 Potassium 3.8 Chloride 107 Carbon Dioxide 20 L Anion Gap 10.0 BUN 7 Creatinine 0.4 Estimated GFR (MDRD) 194 Glucose 95 Calcium 8.9 Total Bilirubin 0.4 AST 15 ALT 17 Alkaline Phosphatase 44 Total Protein 7.1 Albumin 3.6 Globulin 3.5 Albumin/Globulin Ratio 1.0 Lipase 27 HCG, Quant Urine Color YELLOW Urine Clarity CLEAR Urine pH 6.0 Ur Specific [place] 1.020 Urine Protein NEGATIVE Urine Glucose (UA) NEGATIVE Urine Ketones NEGATIVE Urine Occult Blood MODERATE H Urine Nitrite NEGATIVE Urine Bilirubin NEGATIVE Urine Urobilinogen 0.2 (NORMAL) Ur Leukocyte Esterase NEGATIVE Urine RBC 0-5 Urine WBC 0-3 Ur Squamous Epith Cells FEW Squamous Urine Bacteria Rare Urine Culture Comments NOT INDICATED 10/08/20 02:30 WBC RBC Hgb Hct MCV MCH MCHC RDW Plt Count MPV Neut # (Auto) Lymph # (Auto) [place] # (Auto) Eos # (Auto) Baso # (Auto) Absolute Nucleated RBC Nucleated RBC % Sodium Potassium Chloride Carbon Dioxide Anion Gap BUN Creatinine Estimated GFR (MDRD) Glucose Calcium Total Bilirubin AST ALT Alkaline Phosphatase Total Protein Albumin Globulin Albumin/Globulin Ratio Lipase HCG, Quant 885245.00 Urine Color Urine Clarity Urine pH Ur Specific [place] Urine Protein Urine Glucose (UA) Urine Ketones Urine Occult Blood Urine Nitrite Urine Bilirubin Urine Urobilinogen Ur Leukocyte Esterase Urine RBC Urine WBC Ur Squamous Epith Cells Urine Bacteria Urine Culture Comments PD MEDICAL DECISION MAKING - ED course ED course: 24-year-old woman presents with likely miscarriage. Will obtain lab work and ultrasound to evaluate. Ultrasound with both pregnancies intact in the uterus, small hemorrhages stable. FHR WNL for both embryos. Pelvic exam performed with KIMBERLEY Rodriguez assisting. Cervical os is closed. small amount of bloody mucus in the vaginal vault with one subcentimeter dark red clot. D/w patient who is aware of need for prompt follow up with her OB Dr. Thoams in [place]. strict return precautions given. Departure - Departure Disposition: Home, Self Care Clinical Impression: Vaginal bleeding affecting early , Abdominal cramping Condition: Stable Instructions: ED Miscarriage Poss Comments: You were seen in the emergency department for vaginal bleeding during early . Your ultrasound showed that both embryos are still in the uterus with normal heart rates and you have a stable amount of blood in the uterus from your August ultrasound. Your pelvic exam showed a closed cervix and a small amount of bloody mucus in the vagina. Your urine showed no signs of infection.Please follow-up with your OB this week for repeat blood work.Return to the emergency department for any new or worsening symptoms or other concerns.
[2020-10-08 02:54] LABS: ALBUMIN 3.6 g/dL (3.2-5.5); BILIRUBIN,TOTAL 0.4 mg/dL (0.2-1.0); CALCIUM 8.9 mg/dL (8.5-10.3); CREATININE 0.4 mg/dL (0.4-1.0); POTASSIUM 3.8 mmol/L (3.5-5.0); TOTAL PROTEIN 7.1 g/dL (6.7-8.2)
[2020-10-08 04:21] VITALS: BP 133/79
--- NOTE | 2020-10-08 10:35 | Ultrasound Report ---
PROCEDURE: OB First Trimester INDICATIONS: VAGINAL BLEEDING TWINS 10WEEKS GESTATION OUTSIDE/PRIOR DATING DATA: Last menstrual period (LMP): 07/28/2020. LMP-based estimated date of delivery (LATRELL): 05/04/2021. First scan (date and location): 10/08/2020 at [facility]. Estimated date of delivery (LATRELL) from first dating scan: 05/04/2021 TECHNIQUE: Real-time scanning was performed of the fetus and maternal pelvic organs, with image documentation. COMPARISON: OB ultrasound 09/05/2020. FINDINGS: There is a live dichorionic diamniotic twin . Cervix is closed. Embryo A: Maternal left. Measuring 9 weeks 4 days based on crown-rump length. LATRELL 05/06/2021. cardiac activity was present with heart rate 169 BPM. A normal yolk sac is present. Small subch orionic bleed is noted measuring 2.1 x 0.6 x 1.6 cm inferior to gestational sac. Embryo B: Maternal right. Measuring 9 weeks 6 days based on crown-rump length. LATRELL 05/04/2021. cardiac activity was present with heart rate 169 BPM. A normal yolk sac is present. Small subc horionic bleed is noted measuring 1.1 x 2.0 x 1.2 cm superior to the gestational sac. Measurement variability in dating: +/- 4 weeks by LMP, +/- 7 days by mean sac diameter (use before 6 weeks gestation if crown-rump length not able to be measured), +/- 5 days by crown-rump length (6-12 weeks gestation). Maternal organs: Ovaries are grossly normal. As a corpus luteal cyst in right ovary. IMPRESSION: 1. Dichorionic, diamniotic live intrauterine twin . 2. Small subchorionic hematomas are noted adjacent to each gestational sac. Recommend clinical follow-up and imaging follow-up as needed. 3. LATRELL May 04, 2021, concordant with clinical dating. 4. Cervix is closed. No significant discrepancy with the preliminary interpretation. Reviewed by: Reji Sexton MD on 10/08/2020 10:33 AM PDT Approved by: Reji Sexton MD on 10/08/2020 10:33 AM PDT Station ID: [id number]
--- NOTE | 2020-10-08 17:40 | Ultrasound Report ---
PROCEDURE: OB First Trimester Addl Fetus INDICATIONS: vaginal bleeding twins 10wga perigest hemorrhage. OUTSIDE/PRIOR DATING DATA: Last menstrual period (LMP): 07/28/2020. LMP-based estimated date of delivery (LATRELL): 05/04/2021. First scan (date and location): 10/08/2020 at [facility]. Estimated date of delivery (LATRELL) from first dating scan: 05/04/2021 TECHNIQUE: Real-time scanning was performed of the fetus and maternal pelvic organs, with image docum entation. COMPARISON: OB ultrasound 09/05/2020. FINDINGS: There is a live dichorionic diamniotic twin . Cervix is closed. Embryo A: Maternal left. Measuring 9 weeks 4 days based on crown-rump length. LATRELL 05/06/2021. c ardiac activity was present with heart rate 169 BPM. A normal yolk sac is present. Small subcho rionic bleed is noted measuring 2.1 x 0.6 x 1.6 cm inferior to gestational sac. Embryo B: Maternal right. Measuring 9 weeks 6 days based on crown-rump length. LATRELL 05/04/2021. cardiac activity was present with heart rate 169 BPM. A normal yolk sac is present. Small subch orionic bleed is noted measuring 1.1 x 2.0 x 1.2 cm superior to the gestational sac. Measurement variability in dating: +/- 4 weeks by LMP, +/- 7 days by mean sac diameter (use before 6 weeks gestation if crown-rump length not able to be measured), +/- 5 days by crown-rump length (6-12 weeks gestation). Maternal organs: Ovaries are grossly normal. There is a corpus luteal cyst in right ovary. IMPRESSION: 1. Dichorionic, diamniotic live intrauterine twin . 2. Small subchorionic hematomas are noted adjacent to each gestational sac. Recommend clinical follow -up and imaging follow-up as needed. 3. LATRELL May 04, 2021, concordant with clinical dating. 4. Cervix is closed. No significant discrepancy with the preliminary interpretation. Reviewed by: Reji Sexton MD on 10/08/2020 5:39 PM PDT Approved by: Reji Sexton MD on 10/08/2020 5:39 PM PDT Station ID: [id number]
== END 2020-10-08 04:55 | disposition home or self-care (01) ==
LOC: ED 01:56
DX: O20.9 Hemorrhage in early pregnancy, unspecified (principal); O30.041 Twin pregnancy, dichorionic/diamniotic, first trimester; O99.891 Other specified diseases and conditions complicating pregnancy; R10.31 Right lower quadrant pain; R10.32 Left lower quadrant pain; O34.81 Maternal care for other abnormalities of pelvic organs, first trimester; N83.11 Corpus luteum cyst of right ovary; Z3A.09 9 weeks gestation of pregnancy
CPT/HCPCS: 36415; 76801; 76802; 80053; 81001; 83690; 84702; 85025; 99284; A9270; 84703; 87086